=== PATIENT | male | born 1950 | race Caucasian/White ===

== ENCOUNTER 2017-07-18 06:28 | Emergency (ER) | payer BC ==
--- NOTE | 2017-07-18 07:02 | EDM.PDOC ---
ED HPI GENERAL MEDICAL PROBLEM - General Chief Complaint: Neck Problem Stated Complaint: NECK PAIN Time Seen by Provider: 07/18/17 07:02 Source of Information: Reports: Patient History Limitations: Reports: No Limitations - History of Present Illness INITIAL COMMENTS - FREE TEXT/NARRATIVE: 66-year-old male presents to the ED with 6 acute onset of pain in the left side of his neck particularly at the base of the skull. Patient awoke around 0400 hrs. this morning with this pain. He went to bed feeling fine. 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 He has no definitive headache at this time. Pain however is at the base of the skull and more left-sided than right-sided. It's limited his mobility substantially in terms of flexion and lateral rotation and flexion. He is okay if he doesn't move his neck. There is no nausea or vomiting. No recent falls or near falls or slips or injuries identified. He has no other neurological deficits Onset: Today Onset Date: 07/18/17 Onset Time: 04:00 Duration: Hour(s): Location: Reports: Neck (Left neck at the base of the skull.) Quality: Reports: Ache, Sharp, Stabbing Severity: Moderate Improves with: Reports: Rest Worsens with: Reports: Movement Context: Reports: Other (Awoke from sleep at 0400 hrs. with stiff painful neck.) . Denies: Activity, Exercise, Lifting, Sick Contact, Trauma Associated Symptoms: Reports: No Other Symptoms. 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 Left Neck Pain Score (Numeric/FACES): 5 - Related Data Allergies Allergy/AdvReac Type Severity Reaction Status Date / Time No Known Allergies Allergy Verified 07/18/17 06:34 Home Meds: Home Meds Acetaminophen [Tylenol] 325 mg PO DAILY PRN 07/18/17 [History] Albuterol [IJD: Albuterol HFA] 2 puff INH Q4H PRN 07/18/17 [History] Aspirin [Ecotrin] 81 mg PO DAILY 07/18/17 [History] Hydrocodone/Acetaminophen [[place]ibal 10-325 Tablet] 1 each PO Q4H PRN 07/18/17 [ History] Lisinopril 40 mg PO DAILY 07/18/17 [History] Mirtazapine [Remeron] 30 mg PO BEDTIME 07/18/17 [History] Multivitamin with Minerals [Multiple Vitamin] 1 tab PO DAILY 07/18/17 [History] Tadalafil [Cialis] 5 mg PO DAILY 07/18/17 [History] Ticagrelor [Brilinta] 90 mg PO BID 07/18/17 [History] amLODIPine [Norvasc] 10 mg PO DAILY 07/18/17 [History] atorvaSTATin [Lipitor] 40 mg PO BEDTIME 07/18/17 [History] oxyCODONE HCl/Acetaminophen [Percocet 5-325 mg Tablet] 1 - 2 each PO Q4H PRN # 16 tablet 07/18/17 [Rx] predniSONE [Deltasone] 20 mg PO ASDIRECTED #18 tablet 07/18/17 [Rx] Past Medical History HEENT History: Reports: Other (See Below) Other HEENT History: wears glasses Cardiovascular History: Reports: High Cholesterol, Hypertension Respiratory History: Reports: COPD Neurological History: Reports: Other (See Below) Other Neuro History: anerusym with repair x2 - Past Surgical History GI Surgical History: Reports: Appendectomy, Hernia Repair/Other Social & Family History - Tobacco Use Smoking Status *Q: Current Every Day Smoker Years of Tobacco use: 40 Packs/Tins Daily: 0.5 - Recreational Drug Use Recreational Drug Use: No - Living Situation & Occupation Living situation: Reports: Occupation: Employed ED ROS GENERAL - Review of Systems Review Of Systems: See Below Constitutional: Denies: Fever, Chills, Malaise, Weakness, Fatigue, Weight Loss HEENT: Reports: Glasses Respiratory: Reports: No Symptoms Cardiovascular: Reports: No Symptoms Endocrine: Reports: No Symptoms GI/Abdominal: Reports: No Symptoms : Reports: Other (Nocturia 2.) Musculoskeletal: Reports: Other (Osteoarthritic inflammation of knees hips low back at times.) Skin: Reports: No Symptoms ( No previous problems with his neck.) Neurological: Denies: Confusion, Dizziness, Headache, Numbness, Paresthesia, Pre -Existing Deficit, Seizure, Syncope, Tingling, Tremors, Trouble Speaking, Difficulty Walking, Weakness, Gait Disturbance Psychiatric: Reports: No Symptoms ED EXAM, UPPER BACK/NECK PAIN - Physical Exam Exam: See Below Exam Limited By: No Limitations General Appearance: Alert, WD/WN, No Apparent Distress Eye Exam: Bilateral Eye: Normal Inspection, PERRL Head Exam: Atraumatic, Normocephalic Neck Exam: Normal Alignment, Normal Inspection, Painful Range of Motion, Stiff Neck, Tenderness (Patient is very tender along the facet joints from C1-C4 on the left side.), Tender Lateral ( There is minimal paraspinal muscle spasm in this area.). No: Full Range of Motion, Spinous Processes Tender, Tender Midline Nexus Criteria: No: Posterior, Midline Cervical Tenderness, Evidence of Intoxication, Altered Level of Consciousness, Focal Neurological Deficit, Painful Distraction Injuries Cardiovascular/Respiratory: Regular Rate, Rhythm, No M/R/G, Normal Peripheral Pulses, Normal Breath Sounds Extremities: Normal Inspection, Normal Range of Motion, No Pedal Edema, Normal Capillary Refill Neurologic: clamp forklift operator II-XII nml As Tested, No Motor/Sensory Deficits, Alert, Normal Mood/Affect, Oriented x 3 DTR: 2+: Bicep (R), Bicep (L) Psychiatric: Normal Affect, Normal Mood Skin Exam: Normal Color, Warm/Dry Course - Vital Signs Last Recorded V/S: Last Vital Signs Temp 36.6 C 07/18/17 06:30 Pulse 100 07/18/17 06:30 Resp 16 07/18/17 06:30 BP 157/81 H 07/18/17 06:30 Pulse Ox 100 07/18/17 06:30 - Radiology Interpretation Free Text/Narrative:: 66-year-old male presents the ED for evaluation of acute onset of left cervical neck pain particular the base of the skull radiating down the lateral aspect of his left neck. Patient has concerns because he has had a previous ruptured aneurysm on 2 occasions. At this time he has no headache nausea vomiting or visual changes to suggest an intracranial problem. He certainly has limited range of motion of the cervical spine with pain well localized to the facet joints of C1-C4 on the left side. There is associated minimal paraspinal muscle spasm in this area. He has good range of motion over power and tone in the upper extremities is normal. There is no true radiculopathy into the upper extremities. T neck CT head to be done. - Re-Assessments/Exams Free Text/Narrative Re-Assessment/Exam: 07/18/17 08:27 CT of the brain reveals no acute changes. He has several metallic densities within the brain compatible with coils and stents because of aneurysm development. There is no intracranial bleeding. CT of the cervical spine shows advanced degenerative changes from C3-C7 bilaterally with significant neural foraminal stenosis at C6-C7 and particularly at C5-C6 level on the left side. His pain is therefore coming from degenerative disc and arthritic changes at multiple levels. He is on Brilenta due to having intracranial stents. You therefore cannot use any anti-inflammatories. I will place him on a short course of prednisone 20 mg a.m. and p.m. for 6 days then 1 tablet in the morning only for another 6 days in an effort to relieve arthritic inflammation in his cervical spine. Also provided with 16 tablets of Percocet 5/ 3/25 milligrams strength to be used on a when necessary basis for neck pain relief. No provided to New to keep away from the workplace today and tomorrow. Hopefully the steroid will be working in a couple of days and relieve a good deal of his pain. At some point time this patient may well need cervical neck intervention because of the advanced degenerative changes identified today. At present he has no radiculopathy in his upper extremities and therefore would've management is appropriate. He will follow-up with his personal physician if any further problems occur. Departure - Departure Time of Disposition: 08:20 Disposition: Home, Self-Care 01 Condition: Fair Clinical Impression: Cervical neck pain with evidence of disc disease - Discharge Information Prescriptions: oxyCODONE HCl/Acetaminophen [Percocet 5-325 mg Tablet] 1 - 2 each PO Q4H PRN # 16 tablet PRN Reason: pain relief. predniSONE [Deltasone] 20 mg PO ASDIRECTED #18 tablet Instructions: Cervical Sprain, [id number] Referrals: Carissa Medina MD [Primary Care Provider] - Forms: ED Department Discharge, ED Return to Work/School Form Additional Instructions: Evaluation the emergency room room this morning in regards to development of severe left-sided cervical neck pain. CT scan of the brain did not reveal any involvement of cerebral aneurysms and current problem. CT of the cervical spine reveals fairly advanced changes at multiple levels with severe disc space narrowing at C3-C4, C4-C5, C5-C6, and C6-C7 levels. Disc space narrowing is also noted at C7-T1 level and T1-T2 level. There is degenerative spurring noted within the facet joints at C3-C4 through C7-T1. There is mild left-sided neural foraminal narrowing noted at C3-C4 and moderate left-sided neural foraminal stenosis noted at C4-C5 levels. There is severe right-sided neural foraminal stenosis at C5-C6 level and moderate bilateral neural foraminal stenosis noted at C6-C7. Therefore suggest treatment with a short course of prednisone 20 mg twice daily with breakfast and supper for 6 days then 1 tablet in the morning only for another 6 days to relieve inflammation. He can't take any of the normal anti-inflammatories because you are on Brilenta. I've written a prescription for pain medication Percocet tablet which could be taken at bedtime or if the pain is quite severe at any time. But if you take the pain medication you should not be operating a motor vehicle. See how things go hopefully the steroid/to settle things down over the next 24-48 hours. Suggest off work today and a note was provided in this regard. If you develop pain in your extremities particularly her upper arms rating down towards the thumb minutes time to see the doctor again.
--- NOTE | 2017-07-18 08:03 | CT ---
CT cervical spine Technique: Multiple axial sections were obtained from above C1 inferiorly to the bottom of T2. Reconstructed sagittal and coronal images were reviewed. Comparison: No previous cervical spine imaging. Findings: Visualized mastoid sinuses and middle ear cavities are clear. Posterior skull base is intact. Severe disc space narrowing is noted at C3-C4, C4-C5, C5-C6 and C6-C7. Disc space narrowing is also noted at C7-T1 and T1-T2. Posterior osteophytes are seen at C3-C4 through C7-T1. Anterior osteophytes are also seen throughout the cervical spine. Degenerative spurring is noted within the uncovertebral joints at C3-C4 through C7-T1. Mild left-sided neural foraminal stenosis is noted at C3-C4. Mild right-sided neural foraminal stenosis is noted at C4-C5 and moderate left-sided neural foraminal stenosis is noted at C4-C5. Severe right-sided neural foraminal stenosis is noted C5-C6. Moderate bilateral neural foraminal stenosis noted at C6-C7. Very minimal neural foraminal stenosis is noted on the right sided C7-T1. No fracture is seen. No abnormal subluxation is seen. Impression: 1. Diffuse degenerative change as described above. 2. No acute abnormality is identified on CT study of the cervical spine. Diagnostic code #2
--- NOTE | 2017-07-18 08:03 | CT ---
Head CT Technique: Multiple axial sections through the brain were obtained. Intravenous contrast was not utilized. Comparison: No prior intracranial imaging. Findings: Ventricles along with basal cisterns and sulci over the convexities are within normal limits for the patient's age. No abnormal parenchymal densities are seen. No evidence of intracranial hemorrhage. No midline shift or mass effect is seen. Artifact is identified from stent as well as possible aneurysm clips versus embolization coils within the suprasellar cistern and left sylvian fissure. Previous cesar hole is noted within the right frontal region. No acute calvarial abnormality is seen. Impression: 1. Previous intervention with aneurysm clips versus embolization coils as well as stent. This causes some artifact. 3. No acute intracranial abnormality is appreciated. Diagnostic code #2
== END 2017-07-18 08:42 | disposition home or self-care (01) ==
LOC: JD.ED 06:28
DX: M50.90 Cervical disc disorder, unspecified, unspecified cervical region (principal); I10 Essential (primary) hypertension; E78.00 Pure hypercholesterolemia, unspecified; F17.210 Nicotine dependence, cigarettes, uncomplicated; Z79.82 Long term (current) use of aspirin; Z79.899 Other long term (current) drug therapy
CPT/HCPCS: 70450; 70450-26; 72125; 72125-26; 99284; 99284-25

== ENCOUNTER 2018-11-07 17:35 | Emergency (ER) | payer BC ==
--- NOTE | 2018-11-07 19:20 | EDM.PDOCBH ---
ED HPI GENERAL MEDICAL PROBLEM - General Chief Complaint: Behavioral/Psych Stated Complaint: ALCOHOL DETOX Time Seen by Provider: 11/07/18 18:15 Source of Information: Reports: Patient, Family History Limitations: Reports: Intoxication - History of Present Illness INITIAL COMMENTS - FREE TEXT/NARRATIVE: Pt is 68 yo M who was brought in by brother today after asking him to "get him help" for his drinking. He has been a daily drinker x 50 years and drinks hard liquor, wine, and beer. He denies any past or present illicit drug use. He smokes 1.5ppd x 50 years. Today he had 1L Vodka and 4 glasses of wine. He has been to "rehab retreat" before, was never inpt (no known h/o DT), back in [place] per pt and brother, and went 4 times in 2003. Longest he has been sober has been 1 year, but he can't remember what year that was. He states he drinks because "he likes it" and denies any suicidal or homicidal ideation. He wants help today because "I'm sick of people thinking I'm drunk all the time". He currently works at [employer] and per his brother, he drinks daily to the point that he has not been going to work consistently. He states "it's been months since he's been to work, especially 2 days in a row". He has no other family support near him. Daughter is in [place] and son is in [place]. Other brother and sister are "not in the picture" per brother. He does have a h/ o depression and is taking Prosac and Mirtazapine. 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 He denies any F/C, N/V, abdominal pain or GI/ complaints. He does complain of diarrhea x 6 days. No other concerns at this time. EtOH is 0.38 at this time. Brother is [employer] and would like to be contacted with updates regarding his brother's progress. He can be reached at . - Related Data Allergies Allergy/AdvReac Type Severity Reaction Status Date / Time No Known Allergies Allergy Verified 11/07/18 17:54 Home Meds: Home Meds Acetaminophen [Tylenol] 325 mg PO DAILY PRN 07/18/17 [History] Aspirin [Ecotrin] 81 mg PO DAILY 07/18/17 [History] Lisinopril 40 mg PO DAILY 07/18/17 [History] Mirtazapine [Remeron] 30 mg PO BEDTIME 07/18/17 [History] Multivitamin with Minerals [Multiple Vitamin] 1 tab PO DAILY 07/18/17 [History] Tadalafil [Cialis] 5 mg PO DAILY 07/18/17 [History] amLODIPine [Norvasc] 10 mg PO BEDTIME 07/18/17 [History] atorvaSTATin [Lipitor] 40 mg PO DAILY 07/18/17 [History] FLUoxetine [PROzac] 20 mg PO BEDTIME 11/07/18 [History] Past Medical History HEENT History: Reports: Other (See Below) Other HEENT History: wears glasses Cardiovascular History: Reports: Aneurysm, High Cholesterol, Hypertension Respiratory History: Reports: COPD Neurological History: Reports: Other (See Below) Other Neuro History: anerusym with repair x2 - Past Surgical History GI Surgical History: Reports: Appendectomy, Hernia Repair/Other Social & Family History - Tobacco Use Smoking Status *Q: Unknown Ever Smoked - Alcohol Use Days Per Week of Alcohol Use: 7 Number of Drinks Per Day: 10 Total Drinks Per Week: 70 - Recreational Drug Use Recreational Drug Use: No - Living Situation & Occupation Living situation: Reports: Occupation: Employed ED ROS GENERAL - Review of Systems Review Of Systems: ROS reveals no pertinent complaints other than HPI. ED EXAM, BEHAVIORAL HEALTH - Physical Exam Exam: See Below Exam Limited By: Intoxication General Appearance: Alert Eye Exam: Bilateral Eye: EOMI, Normal Inspection, PERRL Ears: Normal External Exam, Hearing Grossly Normal Nose: Normal Inspection, Normal Mucosa, No Blood Throat/Mouth: Normal Inspection, Normal Lips, Normal Teeth, Normal Gums, Normal Oropharynx, Normal Voice, No Airway Compromise Head: Atraumatic, Normocephalic Neck: Normal Inspection, Supple, Non-Tender, Full Range of Motion Respiratory/Chest: No Respiratory Distress, Lungs Clear, Normal Breath Sounds, No Accessory Muscle Use, Chest Non-Tender Cardiovascular: Normal Peripheral Pulses, No Edema, No Gallop, No JVD, No Murmur , No Rub, Tachycardia GI/Abdominal: Soft, Non-Tender, No Organomegaly, No Abnormal Bruit, No Mass, Distended, Abnormal Bowel Sounds (hyperactive) Back Exam: Normal Inspection Extremities: Normal Inspection, Normal Range of Motion, Non-Tender, Normal Capillary Refill, No Pedal Edema Psychiatric: Alert, Oriented. No: Homicidal Thoughts, Suicidal Thoughts Skin Exam: Warm, Dry, Intact, Normal color, No rash COURSE, BEHAVIORAL HEALTH COMP - Course Vital Signs: Last Vital Signs Temp 97.5 F 11/07/18 17:59 Pulse 130 H 11/07/18 17:59 Resp 16 11/07/18 17:59 BP 122/99 H 11/07/18 17:59 Pulse Ox 95 11/07/18 17:59 Orders, Labs, Meds: Active Orders 24 hr Category Date Time Status Lactated Ringers @ 150 MLS/HR(1000ml Bag) Med 11/07/18 21:00 Ordered Lactated Ringers [Ringers, Lactated] 1,000 ml IV ASDIRECTED Medication Orders Lactated Ringer's (Ringers, Lactated) 1,000 mls @ 150 mls/hr IV ASDIRECTED DENY Laboratory Tests 11/07/18 11/07/18 11/07/18 Range/Units 19:15 19:15 20:01 WBC 8.42 (4.23-9.07) K/mm3 RBC 3.83 L (4.63-6.08) M/mm3 Hgb 12.7 L (13.7-17.5) gm/L Hct 37.3 L (40.1-51.0) % MCV 97.4 H (79.0-92.2) fl MCH 33.2 H (25.7-32.2) pg MCHC 34.0 (32.2-35.5) g/dl RDW Std Deviation 48.0 H (35.1-43.9) fL Plt Count 184 (163-337) K/mm3 MPV 10.5 (9.4-12.3) fl Neut % (Auto) 69.5 H (34.0-67.9) % Lymph % (Auto) 23.9 (21.8-53.1) % [place] % (Auto) 5.5 (5.3-12.2) % Eos % (Auto) 0.6 L (0.8-7.0) Baso % (Auto) 0.4 (0.1-1.2) % Neut # (Auto) 5.86 H (1.78-5.38) K/mm3 Lymph # (Auto) 2.01 (1.32-3.57) K/mm3 [place] # (Auto) 0.46 (0.30-0.82) K/mm3 Eos # (Auto) 0.05 (0.04-0.54) K/mm3 Baso # (Auto) 0.03 (0.01-0.08) K/mm3 Sodium 146 H (136-145) mEq/L Potassium 3.6 (3.5-5.1) mEq/L Chloride 111 H (98-107) mEq/L Carbon Dioxide 23 (21-32) mEq/L Anion Gap 15.6 H (5-15) BUN 18 (7-18) mg/dL Creatinine 0.7 (0.7-1.3) mg/dL Est Cr Clr Drug Dosing 103.81 mL/min Estimated GFR (MDRD) > 60 (>60) mL/min BUN/Creatinine Ratio 25.7 H (14-18) Glucose 84 (80-115) mg/dL Calcium 8.3 L (8.5-10.1) mg/dL Total Bilirubin 0.4 (0.2-1.0) mg/dL AST 63 H (15-37) U/L ALT 81 H (16-63) U/L Alkaline Phosphatase 91 (46-116) U/L Total Protein 6.2 L (6.4-8.2) g/dl Albumin 3.1 L (3.4-5.0) g/dl Globulin 3.1 gm/dL Albumin/Globulin Ratio 1.0 (1-2) TSH 3rd Generation 1.561 (0.358-3.74) uIU/mL Urine Opiates Screen Negative (AFHBNG=624) Ur Buprenorphine Scrn Negative (CUTOFF=10) Ur Oxycodone Screen Negative (ACI2DZ=982) Urine Methadone Screen Negative (RBH2VA=173) Ur Propoxyphene Screen Negative (NWRPWL=172) Ur Barbiturates Screen Negative (ZWXHME=732) Ur Tricyclics Screen Negative (LELUBJ=612) Ur Phencyclidine Scrn Negative (CUTOFF=25) Ur Amphetamine Screen Negative (BUBDMY=908) U Methamphetamines Scrn Negative (KCTAZT=381) U Benzodiazepines Scrn Negative (FRQSDH=670) U Cocaine Metab Screen Negative (XPFTJP=630) U Marijuana (THC) Screen Negative (CUTOFF=50) Ethyl Alcohol 0.38 (0.00) gm% Medications Generic Name Dose Route Start Last Admin Trade Name Freq PRN Reason Stop Dose Admin Lactated Ringer's 1,000 mls @ 150 mls/hr 11/07/18 21:00 Ringers, Lactated IV ASDIRECTED DENY Discontinued Medications Generic Name Dose Route Start Last Admin Trade Name Freq PRN Reason Stop Dose Admin Sodium Chloride 1,000 mls @ 999 mls/hr 11/07/18 19:37 11/07/18 20:12 Normal Saline IV 11/07/18 20:37 999 mls/hr ONETIME ONE Administration Thiamine HCl 100 mg/ Sodium 101 mls @ 202 mls/hr 11/07/18 19:37 11/07/18 20: 12 Chloride IV 11/07/18 19:38 202 mls/hr ONETIME ONE Administration Dextrose/Sodium Chloride 1,000 mls @ 150 mls/hr 11/07/18 20:45 Dextrose 5%-1/2 Ns IV ASDIRECTED DENY Nicotine 21 mg 11/07/18 19:40 11/07/18 20:13 Habitrol TRDERM 11/07/18 19:41 21 mg ONETIME ONE Administration Thiamine HCl Confirm 11/07/18 19:52 11/07/18 20:13 Vitamin B-1 Administered 11/07/18 19:53 Not Given Dose 200 mg .ROUTE .STK-MED ONE Re-Assessment/Re-Exam: 11/07/18 19:15 I have ordered CBC, CMP, EtOH, Urine Drug screen, TSH 1L bolus IV NS, 100mg Thiamine, and 21mg Nicotine patch 11/07/18 19:40 EtOH 0.38 CBC Hgb 12.7 CMP Na 146, Cl 111, AGap 15.6, Ca 8.3, AST 63, ALT 81 Drug screen pending 11/07/18 19:45 Discussed case with Hospitalist Dr. Allen who has accepted the patient for admission. Departure - Departure Time of Disposition: 20:31 Disposition: DC/Tfer to Acute Hospital 02 Condition: Undetermined Clinical Impression: Alcohol abuse, Alcohol withdrawal - Discharge Information *PRESCRIPTION DRUG MONITORING PROGRAM REVIEWED*: Not Applicable *COPY OF PRESCRIPTION DRUG MONITORING REPORT IN PATIENT MEREDITH: Not Applicable Referrals: Carissa Medina MD [Primary Care Provider] - Forms: ED Department Discharge - My Orders Last 24 Hours: My Active Orders 11/07/18 21:00 Lactated Ringers @ 150 MLS/HR(1000ml Bag) Lactated Ringers [Ringers, Lactated] 1 ,000 ml IV ASDIRECTED - Assessment/Plan Last 24 Hours: My Active Orders 11/07/18 21:00 Lactated Ringers @ 150 MLS/HR(1000ml Bag) Lactated Ringers [Ringers, Lactated] 1 ,000 ml IV ASDIRECTED
[2018-11-07] MEDS ORDERED: Sodium Chloride 0.9% 1,000 ML IV ONE (19:37)
[2018-11-07] MEDS ORDERED: Thiamine 100 MG in Sodium Chloride 0.9% 100 ML IV ONE (19:37)
[2018-11-07] MEDS ORDERED: Nicotine 21 MG/24 Hr Patch TRDERM ONE (19:40)
[2018-11-07] MEDS ORDERED: Thiamine 200 MG/2 ML MDV ONE (19:52)
[2018-11-07] MEDS ORDERED: Dextrose 5%-0.45% NaCl 1,000 ML IV SCH (20:45)
[2018-11-07] MEDS ORDERED: Lactated Ringers 1,000 ML IV SCH (21:00)
== END 2018-11-07 22:00 ==
LOC: JD.ED 17:35
DX: F10.239 Alcohol dependence with withdrawal, unspecified (principal); E78.00 Pure hypercholesterolemia, unspecified; I10 Essential (primary) hypertension; J44.9 Chronic obstructive pulmonary disease, unspecified; Z79.82 Long term (current) use of aspirin; Z79.899 Other long term (current) drug therapy
CPT/HCPCS: 36415; 80053; 80306; 84443; 85025; 96365; 96366; 99284; A9270; G0480; J3411; J7030; J7040; J7120

== ENCOUNTER 2018-12-14 14:09 | Emergency (ER) | payer BC ==
--- NOTE | 2018-12-14 15:07 | EDM.PDOC ---
ED HPI GENERAL MEDICAL PROBLEM - General Chief Complaint: Cardiovascular Problem Stated Complaint: HAD AP AND NOW HAVING TROUBLE BREATHING. Time Seen by Provider: 12/14/18 14:24 Source of Information: Reports: Patient, RN Notes Reviewed History Limitations: Reports: No Limitations - History of Present Illness INITIAL COMMENTS - FREE TEXT/NARRATIVE: Patient is a 68-year-old male who presents to the ED for the evaluation of increased shortness of breath with activities. The patient states that he has a history of A. fib, and he had a cardioversion done on Monday. This was performed by Dr. Palmer in [place], he states he also had a MEKHI done and this was within normal limits at this time. The patient notes his primary care provider to be Dr. Euceda. He states since the procedure on Monday, he has had increasing shortness of breath with activities. He also states that he just feels generally achy all over, however he states he normally shivers and attributes his achiness to the shivering. The patient states last night that he tried vacuuming his house, and got around 20% of it done when he just became too short of breath and stopped vacuuming. The patient also states he has some decreased energy at this time. The patient states that he has not felt sick otherwise. He also thinks that he might be a little bit bloated at this time. He has never had any issues with fluid on his heart and lungs that he has been told, and he's never had any shortness of breath like this in the past. He states he is on Lasix 80 mg in a.m. and 40 mg at night however. The patient states that he is still working, and works in [employer] so he gets quite a bit of exercise throughout the day. The patient also notes history of COPD for which he takes albuterol, although he has not had an take his albuterol inhaler in quite some time. The patient also notes he is a current smoker, however he is using a patch and only smoking around 4 cigarettes per day. He is trying to quit smoking at this time. The patient further denies any chest pain. But he states that he feels some chest heaviness within the upper chest. The patient does not state that his shortness of breath is worse in any certain position. Chest Pain Score (Numeric/FACES): 5 - Related Data Allergies Allergy/AdvReac Type Severity Reaction Status Date / Time No Known Allergies Allergy Verified 12/14/18 14:16 Home Meds: Home Meds Acetaminophen [Tylenol] 325 mg PO DAILY PRN 07/18/17 [History] Aspirin [Ecotrin] 81 mg PO DAILY 07/18/17 [History] Lisinopril 40 mg PO DAILY 07/18/17 [History] Mirtazapine [Remeron] 30 mg PO BEDTIME 07/18/17 [History] Multivitamin with Minerals [Multiple Vitamin] 1 tab PO DAILY 07/18/17 [History] Tadalafil [Cialis] 5 mg PO DAILY 07/18/17 [History] amLODIPine [Norvasc] 10 mg PO BEDTIME 07/18/17 [History] atorvaSTATin [Lipitor] 40 mg PO DAILY 07/18/17 [History] FLUoxetine [PROzac] 20 mg PO BEDTIME 11/07/18 [History] Magnesium Chloride [Slow-Mag] 71.5 mg PO DAILY #30 tablet. 12/14/18 [Rx] Spironolactone [Aldactone] 25 mg PO BID #60 tablet 12/14/18 [Rx] Past Medical History HEENT History: Reports: Other (See Below) Other HEENT History: wears glasses Cardiovascular History: Reports: Afib, Aneurysm, High Cholesterol, Hypertension Respiratory History: Reports: COPD Neurological History: Reports: Other (See Below) Other Neuro History: anerusym with repair x2 - Past Surgical History GI Surgical History: Reports: Appendectomy, Hernia Repair/Other Social & Family History - Tobacco Use Smoking Status *Q: Current Every Day Smoker Years of Tobacco use: 50 Packs/Tins Daily: 1.5 - Recreational Drug Use Recreational Drug Use: No - Living Situation & Occupation Living situation: Reports: Occupation: Employed ED ROS GENERAL - Review of Systems Review Of Systems: See Below Constitutional: Reports: Chills, Fatigue. Denies: Fever, Weakness HEENT: Reports: No Symptoms Respiratory: Reports: Shortness of Breath. Denies: Wheezing, Cough, Sputum Cardiovascular: Reports: Chest Pain (upper chest pressure), Dyspnea on Exertion. Denies: Lightheadedness, Orthopnea Endocrine: Reports: No Symptoms GI/Abdominal: Reports: Distension (feels bloated, belly is bigger than normal) : Reports: No Symptoms Musculoskeletal: Reports: No Symptoms Skin: Reports: No Symptoms Neurological: Reports: No Symptoms Psychiatric: Reports: No Symptoms Hematologic/Lymphatic: Reports: No Symptoms Immunologic: Reports: No Symptoms ED EXAM, GENERAL - Physical Exam Exam: See Below Exam Limited By: No Limitations General Appearance: Alert, WD/WN, No Apparent Distress Eye Exam: Bilateral Eye: Normal Inspection Ears: Normal External Exam Nose: Normal Inspection Throat/Mouth: Normal Inspection, Normal Lips, Normal Teeth, Normal Oropharynx, Normal Voice, No Airway Compromise Head: Atraumatic, Normocephalic Neck: Normal Inspection Respiratory/Chest: No Respiratory Distress, Lungs Clear, Normal Breath Sounds, No Accessory Muscle Use, Chest Non-Tender Cardiovascular: Normal Peripheral Pulses, Regular Rate, Rhythm, No Murmur GI/Abdominal: Normal Bowel Sounds, Soft, Non-Tender, Distended (Patient's abdomen is visibly distended, he states that he feels bloated and that his belly is bigger than it normally is.) Extremities: Normal Inspection, No Pedal Edema, Normal Capillary Refill Neurological: Alert, Oriented, Normal Cognition, No Motor/Sensory Deficits Psychiatric: Normal Affect, Normal Mood Skin Exam: Warm, Dry, Intact, Normal Color, No Rash EKG INTERPRETATION EKG Date: 12/14/18 Time: 14:19 Rhythm: NSR Rate (Beats/Min): 60 [place]: Normal P-Wave: Present QRS: Normal ST-T: Normal QT: Normal EKG Interpretation Comments: Reviewed with Dr. Rodriguez, Left atrial hypertrophy, T-wave flattening in III, AvL, V4-6 which are nonspecific. Course - Vital Signs Last Recorded V/S: Last Vital Signs Temp Pulse 61 12/14/18 14:16 Resp BP Pulse Ox - Orders/Labs/Meds Orders: Active Orders 24 hr Category Date Time Status EKG Documentation Completion [RC] STAT Care 12/14/18 14:26 Active Peripheral IV Care [RC] . DIRECTED Care 12/14/18 15:59 Inactive Chest 2V [CR] Stat Exams 12/14/18 14:26 Taken Labs: Laboratory Tests 12/14/18 12/14/18 12/14/18 Range/Units 15:04 15:04 15:04 WBC 9.39 H (4.23-9.07) K/mm3 RBC 3.09 L (4.63-6.08) M/mm3 Hgb 10.2 L D (13.7-17.5) gm/L Hct 31.2 L (40.1-51.0) % MCV 101.0 H (79.0-92.2) fl MCH 33.0 H (25.7-32.2) pg MCHC 32.7 (32.2-35.5) g/dl RDW Std Deviation 50.1 H (35.1-43.9) fL Plt Count 160 L (163-337) K/mm3 MPV 11.4 (9.4-12.3) fl Neutrophils % (Manual) 73 H (40-60) % Band Neutrophils % 1 (0-10) % Lymphocytes % (Manual) 13 L (20-40) % Atypical Lymphs % 0 % Monocytes % (Manual) 7 (2-10) % Eosinophils % (Manual) 5 (0.8-7.0) % Basophils % (Manual) 1 (0.2-1.2) Platelet Estimate Adequate Poikilocytosis 1+ slight Anisocytosis 2+ moderate PT 11.4 (9.5-12.1) SECONDS INR 1.05 APTT 27 (24-31) SECONDS D-Dimer, Quantitative 0.47 (0.19-0.50) mg/L Sodium 137 (136-145) mEq/L Potassium 4.0 (3.5-5.1) mEq/L Chloride 101 (98-107) mEq/L Carbon Dioxide 24 (21-32) mEq/L Anion Gap 16.0 H (5-15) BUN 22 H (7-18) mg/dL Creatinine 0.9 (0.7-1.3) mg/dL Est Cr Clr Drug Dosing 80.74 mL/min Estimated GFR (MDRD) > 60 (>60) mL/min BUN/Creatinine Ratio 24.4 H (14-18) Glucose 112 (80-115) mg/dL Calcium 9.7 (8.5-10.1) mg/dL Magnesium (1.8-2.4) mg/dl Total Bilirubin 1.1 H (0.2-1.0) mg/dL AST 121 H (15-37) U/L ALT 159 H (16-63) U/L Alkaline Phosphatase 747 H (46-116) U/L Troponin I < 0.017 (0.00-0.056) ng/mL NT-Pro-B Natriuret Pep (0-125) pg/mL Total Protein 7.1 (6.4-8.2) g/dl Albumin 3.1 L (3.4-5.0) g/dl Globulin 4.0 gm/dL Albumin/Globulin Ratio 0.8 L (1-2) 12/14/18 12/14/18 Range/Units 15:04 15:04 WBC (4.23-9.07) K/mm3 RBC (4.63-6.08) M/mm3 Hgb (13.7-17.5) gm/L Hct (40.1-51.0) % MCV (79.0-92.2) fl MCH (25.7-32.2) pg MCHC (32.2-35.5) g/dl RDW Std Deviation (35.1-43.9) fL Plt Count (163-337) K/mm3 MPV (9.4-12.3) fl Neutrophils % (Manual) (40-60) % Band Neutrophils % (0-10) % Lymphocytes % (Manual) (20-40) % Atypical Lymphs % % Monocytes % (Manual) (2-10) % Eosinophils % (Manual) (0.8-7.0) % Basophils % (Manual) (0.2-1.2) Platelet Estimate Poikilocytosis Anisocytosis PT (9.5-12.1) SECONDS INR APTT (24-31) SECONDS D-Dimer, Quantitative (0.19-0.50) mg/L Sodium (136-145) mEq/L Potassium (3.5-5.1) mEq/L Chloride (98-107) mEq/L Carbon Dioxide (21-32) mEq/L Anion Gap (5-15) BUN (7-18) mg/dL Creatinine (0.7-1.3) mg/dL Est Cr Clr Drug Dosing mL/min Estimated GFR (MDRD) (>60) mL/min BUN/Creatinine Ratio (14-18) Glucose (80-115) mg/dL Calcium (8.5-10.1) mg/dL Magnesium 1.7 L (1.8-2.4) mg/dl Total Bilirubin (0.2-1.0) mg/dL AST (15-37) U/L ALT (16-63) U/L Alkaline Phosphatase (46-116) U/L Troponin I (0.00-0.056) ng/mL NT-Pro-B Natriuret Pep 1504 H (0-125) pg/mL Total Protein (6.4-8.2) g/dl Albumin (3.4-5.0) g/dl Globulin gm/dL Albumin/Globulin Ratio (1-2) Meds: Medications Discontinued Medications Generic Name Dose Route Start Last Admin Trade Name Freq PRN Reason Stop Dose Admin Furosemide 40 mg 12/14/18 15:59 12/14/18 16:16 Lasix IVPUSH 12/14/18 16:00 Not Given NOW ONE Furosemide 60 mg 12/14/18 16:10 12/14/18 16:15 Lasix IM 12/14/18 16:11 60 mg NOW ONE Administration Sodium Chloride 10 ml 12/14/18 15:59 Saline Flush FLUSH ASDIRECTED PRN Keep Vein Open - Re-Assessments/Exams Free Text/Narrative Re-Assessment/Exam: 12/14/18 15:10 Patient presents to the ED for the evaluation of increasing shortness of breath with activities. I have ordered a cardiac workup to include EKG, 2 view chest x -ray, CBC, CMP, troponin, d-dimer, BNP, magnesium, PTT and PT/INR for further evaluation of his symptoms. 12/14/18 16:29 Patient's labs have returned and his troponin, d-dimer, PT/PTT and PT/INR were within normal limits. His EKG did not show any ST acute ischemic changes. Chest x-ray was suggestive of a small amount of fluid on his lungs into the right base, this was also reviewed with Dr. Rodriguez. The patient's BNP is over 1500 which is suggestive of a small amount of heart failure at this time. The patient's liver enzymes are quite elevated however upon reading his last ED visit he was a fairly heavy drinker up until October of this year. I did order 60 mg IM Lasix to be given at the ED today, and have ordered Aldactone 25 mg twice a day, and Slow-Mag 71.5 mg every day for further management of his symptoms. I will suggest that he follow up with his primary care provider sometime next week for reevaluation of his labs. Departure - Departure Time of Disposition: 16:54 Disposition: Home, Self-Care 01 Condition: Fair Clinical Impression: Dyspnea on exertion Prescriptions: Magnesium Chloride [Slow-Mag] 71.5 mg PO DAILY #30 tablet. Spironolactone [Aldactone] 25 mg PO BID #60 tablet Instructions: Heart Failure, [id number] Referrals: Carissa Medina MD [Primary Care Provider] - Forms: ED Department Discharge Additional Instructions: You have been evaluated in the ED today for your increased shortness of breath with activities. Your lab work demonstrates that you are in slight heart failure. You have been given an additional dose of Lasix in the ED today, and have been prescribed 2 other medications that should help with getting the end of the fluid. This medicine called Aldactone please take 25 mg 2 times daily, please take a magnesium 1 time daily. Please take your Lasix at home as prescribed. Please try to follow up with your primary care provider within the next week for further management. These return to the ED if your symptoms should change or worsen. - My Orders Last 24 Hours: My Active Orders 12/14/18 14:26 EKG Documentation Completion [RC] STAT Chest 2V [CR] Stat 12/14/18 15:59 Peripheral IV Care [RC] . DIRECTED - Assessment/Plan Last 24 Hours: My Active Orders 12/14/18 14:26 EKG Documentation Completion [RC] STAT Chest 2V [CR] Stat 12/14/18 15:59 Peripheral IV Care [RC] . DIRECTED
[2018-12-14] MEDS ORDERED: Sodium Chloride 0.9% 10 ML Syringe FLUSH PRN (15:59)
[2018-12-14] MEDS: Furosemide 40 MG/4 ML VIAL IVPUSH ONE ×2 (16:08→16:16)
[2018-12-14] MEDS ORDERED: Furosemide 40 MG/4 ML VIAL IM ONE (16:10)
--- NOTE | 2018-12-15 08:07 | CR ---
Chest: Two views of the chest were obtained. Comparison: No prior chest x-ray. Heart size is slightly enlarged. Upper mediastinum is normal. Minimal atelectasis is seen within the left base. Lungs otherwise are clear with no acute parenchymal change. Bony structures show minimal degenerative change within the spine. Impression: 1. Slightly enlarged heart. 2. Other incidental findings. Nothing acute is appreciated. Diagnostic code #2
== END 2018-12-14 17:07 | disposition home or self-care (01) ==
LOC: JD.ED 14:09
DX: R06.00 Dyspnea, unspecified (principal); I48.91 Unspecified atrial fibrillation; E78.00 Pure hypercholesterolemia, unspecified; I10 Essential (primary) hypertension; J44.9 Chronic obstructive pulmonary disease, unspecified; F17.210 Nicotine dependence, cigarettes, uncomplicated; Z79.82 Long term (current) use of aspirin; Z79.899 Other long term (current) drug therapy
CPT/HCPCS: 36415; 71046; 80053; 83735; 83880; 84484; 85007; 85027; 85379; 85610; 85730; 93005; 96372; 99285; J1940

== ENCOUNTER 2019-05-14 13:49 | Inpatient (IN) | payer MEDICARE, OTHER ==
[2019-05-14] MEDS ORDERED: Sodium Chloride 0.9% 10 ML Syringe FLUSH PRN (14:31)
--- NOTE | 2019-05-14 14:40 | EDM.PDOC ---
ED HPI GENERAL MEDICAL PROBLEM - General Chief Complaint: Gastrointestinal Problem Stated Complaint: SOB Time Seen by Provider: 05/14/19 13:55 Source of Information: Reports: Patient, RN Notes Reviewed - History of Present Illness INITIAL COMMENTS - FREE TEXT/NARRATIVE: 68 year old male comes in with dark tarry stools that started yesterday afternoon. He has been having them about 1 to 2 times per hour today and also frequent dark tarry stools last evening and during the night. No abd pain, nausea or vomiting yesterday or today. He does take daily 81 mg aspirin and also does take eliquis with hx of a fib last winter, spring. He states he was cardioverted late December or early January and to his knowledge has not been in a fib since that time. He does have hx of smoking, probable mild COPD. States he is more short of breath than usual. Denies feeling lightheaded or dizzy. No hx of prior GI bleeding. States he just had a colonoscopy about 3 months ago, had multiple polyps that were removed but no other abnormality at that time. Bilateral Knee Pain Score (Numeric/FACES): 4 - Related Data Allergies Allergy/AdvReac Type Severity Reaction Status Date / Time No Known Allergies Allergy Verified 05/14/19 14:07 Home Meds: Home Meds Aspirin [Ecotrin] 81 mg PO DAILY 07/18/17 [History] Mirtazapine [Remeron] 30 mg PO BEDTIME 07/18/17 [History] Multivitamin with Minerals [Multiple Vitamin] 1 tab PO DAILY 07/18/17 [History] Tadalafil [Cialis] 5 mg PO DAILY 07/18/17 [History] amLODIPine [Norvasc] 10 mg PO BEDTIME 07/18/17 [History] FLUoxetine [PROzac] 40 mg PO BEDTIME 11/07/18 [History] Apixaban [Eliquis] 5 mg PO BID 12/14/18 [History] Folic Acid 1 mg PO DAILY 12/14/18 [History] Metoprolol Succinate [Toprol XL 100mg] 100 mg PO DAILY 12/14/18 [History] Potassium Chloride [Klor-Con M20] 20 meq PO DAILY 12/14/18 [History] hydrALAZINE [Apresoline] 25 mg PO Q8H 12/14/18 [History] Acetaminophen 325 mg PO DAILY 05/14/19 [History] Albuterol [Ventolin HFA] 90 mcg IH Q4HR PRN 05/14/19 [History] Bisac/NaCl/NaHCo3/KCl/PEG 3350 [Peg-Prep Kit] 1 each PO ASDIRECTED 05/14/19 [ History] Furosemide 40 mg PO ASDIRECTED 05/14/19 [History] Latanoprost/Pf [Latanoprost 0.005% Eye Drop] 1 drop OP DAILY 05/14/19 [History] Magnesium Chloride [Slow-Mag] 70 mg PO DAILY 05/14/19 [History] Nicotine [Nicoderm CQ] 21 mg TD DAILY 05/14/19 [History] Past Medical History HEENT History: Reports: Glaucoma, Impaired Vision Other HEENT History: wears glasses Cardiovascular History: Reports: Afib, Blood Clots/VTE/DVT, High Cholesterol, Hypertension Respiratory History: Reports: COPD Genitourinary History: Reports: None Musculoskeletal History: Reports: Arthritis Neurological History: Reports: Cerebral Aneurysms Other Neuro History: anerusym with repair x2. Pt has stents and coils in the brain. Psychiatric History: Reports: Depression Endocrine/Metabolic History: Reports: None Hematologic History: Reports: Anticoagulation Therapy Immunologic History: Reports: None Oncologic (Cancer) History: Reports: None Dermatologic History: Reports: None - Infectious Disease History Infectious Disease History: Reports: None - Past Surgical History GI Surgical History: Reports: Appendectomy, Hernia Repair/Other Social & Family History - Tobacco Use Smoking Status *Q: Current Every Day Smoker Years of Tobacco use: 50 Packs/Tins Daily: 0.7 - Caffeine Use Caffeine Use: Reports: None - Recreational Drug Use Recreational Drug Use: No - Living Situation & Occupation Living situation: Reports: Occupation: Employed ED ROS GENERAL - Review of Systems Review Of Systems: See Below Constitutional: Denies: Fever, Chills, Diaphoresis HEENT: Denies: Nosebleed, Throat Pain Respiratory: Denies: Shortness of Breath Cardiovascular: Denies: Chest Pain GI/Abdominal: Reports: Melena. Denies: Abdominal Pain, Nausea, Vomiting Musculoskeletal: Reports: No Symptoms Skin: Reports: No Symptoms Neurological: Denies: Dizziness, Numbness, Tingling, Trouble Speaking, Difficulty Walking, Weakness ED EXAM, GI/ABD - Physical Exam Exam: See Below General Appearance: Alert Eyes: Bilateral: Normal Appearance Throat/Mouth: Normal Inspection, Normal Oropharynx Head: Atraumatic. No: Facial Swelling Neck: Supple, Full Range of Motion Respiratory/Chest: No Respiratory Distress, Lungs Clear, Normal Breath Sounds Cardiovascular: Regular Rate, Rhythm GI/Abdominal Exam: Soft, Non-Tender. No: Guarding Rectal (Males) Exam: Heme + Stool (very small amt black diarrhea type stool on glove very strongly heme pos, no bright blood present) Extremities: Normal Inspection, Normal Range of Motion Neurological: Alert, Oriented, No Motor/Sensory Deficits Skin Exam: Warm, Dry, Normal Color EKG INTERPRETATION Rhythm: NSR [place]: Normal P-Wave: Present QRS: Normal ST-T: Other (mild nonspecific t wave changes) Course - Vital Signs Last Recorded V/S: Last Vital Signs Temp 97.4 F 05/14/19 14:02 Pulse 90 05/14/19 14:02 Resp 16 05/14/19 14:02 BP 135/86 05/14/19 14:02 Pulse Ox 97 05/14/19 14:02 Orthostatic Blood Pressure [ 137/94 Standing] Orthostatic Blood Pressure [ 136/90 Sitting] Orthostatic Blood Pressure [ 137/83 Supine] - Orders/Labs/Meds Orders: Active Orders 24 hr Category Date Time Status EKG 12 Lead [EKG Documentation Completion] [RC] STAT Care 05/14/19 14:32 Active Influenza Vaccine Charge [RC] .DISCHARGE Care 05/14/19 14:12 Active Peripheral IV Care [RC] . DIRECTED Care 05/14/19 14:31 Active PATIENT RETYPE [BBK] Routine Lab 05/14/19 15:38 Ordered Sodium Chloride 0.9% [Saline Flush] Med 05/14/19 14:31 Active 10 ml FLUSH ASDIRECTED PRN Peripheral IV Insertion Adult [OM.PC] Stat Oth 05/14/19 14:31 Ordered Medication Orders Sodium Chloride (Saline Flush) 10 ml FLUSH ASDIRECTED PRN PRN Reason: Keep Vein Open Labs: Laboratory Tests 05/14/19 05/14/19 05/14/19 Range/Units 14:45 14:45 14:45 WBC 5.13 (4.23-9.07) K/mm3 RBC 3.50 L (4.63-6.08) M/mm3 Hgb 11.6 L (13.7-17.5) gm/dl Hct 33.6 L (40.1-51.0) % MCV 96.0 H D (79.0-92.2) fl MCH 33.1 H (25.7-32.2) pg MCHC 34.5 (32.2-35.5) g/dl RDW Std Deviation 54.9 H (35.1-43.9) fL Plt Count 164 (163-337) K/mm3 MPV 10.4 (9.4-12.3) fl Neut % (Auto) 75.4 H (34.0-67.9) % Lymph % (Auto) 15.8 L (21.8-53.1) % [place] % (Auto) 8.0 (5.3-12.2) % Eos % (Auto) 0.4 L (0.8-7.0) Baso % (Auto) 0.4 (0.1-1.2) % Neut # (Auto) 3.87 (1.78-5.38) K/mm3 Lymph # (Auto) 0.81 L (1.32-3.57) K/mm3 [place] # (Auto) 0.41 (0.30-0.82) K/mm3 Eos # (Auto) 0.02 L (0.04-0.54) K/mm3 Baso # (Auto) 0.02 (0.01-0.08) K/mm3 PT 9.8 (9.7-12.0) SECONDS INR < 0.93 APTT 25 (22-31) SECONDS Sodium 140 (136-145) mEq/L Potassium 3.5 (3.5-5.1) mEq/L Chloride 106 (98-107) mEq/L Carbon Dioxide 22 (21-32) mEq/L Anion Gap 15.5 H (5-15) BUN 8 (7-18) mg/dL Creatinine 0.7 (0.7-1.3) mg/dL Est Cr Clr Drug Dosing 103.81 mL/min Estimated GFR (MDRD) > 60 (>60) mL/min BUN/Creatinine Ratio 11.4 L (14-18) Glucose 105 (80-115) mg/dL Calcium 8.6 (8.5-10.1) mg/dL Total Bilirubin 0.3 (0.2-1.0) mg/dL AST 190 H (15-37) U/L ALT 153 H (16-63) U/L Alkaline Phosphatase 128 H (46-116) U/L Total Protein 6.1 L (6.4-8.2) g/dl Albumin 2.3 L (3.4-5.0) g/dl Globulin 3.8 gm/dL Albumin/Globulin Ratio 0.6 L (1-2) Ethyl Alcohol (0.00) gm% Blood Type Gel Antibody Screen 05/14/19 05/14/19 Range/Units 14:45 14:45 WBC (4.23-9.07) K/mm3 RBC (4.63-6.08) M/mm3 Hgb (13.7-17.5) gm/dl Hct (40.1-51.0) % MCV (79.0-92.2) fl MCH (25.7-32.2) pg MCHC (32.2-35.5) g/dl RDW Std Deviation (35.1-43.9) fL Plt Count (163-337) K/mm3 MPV (9.4-12.3) fl Neut % (Auto) (34.0-67.9) % Lymph % (Auto) (21.8-53.1) % [place] % (Auto) (5.3-12.2) % Eos % (Auto) (0.8-7.0) Baso % (Auto) (0.1-1.2) % Neut # (Auto) (1.78-5.38) K/mm3 Lymph # (Auto) (1.32-3.57) K/mm3 [place] # (Auto) (0.30-0.82) K/mm3 Eos # (Auto) (0.04-0.54) K/mm3 Baso # (Auto) (0.01-0.08) K/mm3 PT (9.7-12.0) SECONDS INR APTT (22-31) SECONDS Sodium (136-145) mEq/L Potassium (3.5-5.1) mEq/L Chloride (98-107) mEq/L Carbon Dioxide (21-32) mEq/L Anion Gap (5-15) BUN (7-18) mg/dL Creatinine (0.7-1.3) mg/dL Est Cr Clr Drug Dosing mL/min Estimated GFR (MDRD) (>60) mL/min BUN/Creatinine Ratio (14-18) Glucose (80-115) mg/dL Calcium (8.5-10.1) mg/dL Total Bilirubin (0.2-1.0) mg/dL AST (15-37) U/L ALT (16-63) U/L Alkaline Phosphatase (46-116) U/L Total Protein (6.4-8.2) g/dl Albumin (3.4-5.0) g/dl Globulin gm/dL Albumin/Globulin Ratio (1-2) Ethyl Alcohol 0.26 (0.00) gm% Blood Type AB POSITIVE Gel Antibody Screen Negative Meds: Medications Generic Name Dose Route Start Last Admin Trade Name Freq PRN Reason Stop Dose Admin Sodium Chloride 10 ml 05/14/19 14:31 Saline Flush FLUSH ASDIRECTED PRN Keep Vein Open Discontinued Medications Generic Name Dose Route Start Last Admin Trade Name Freq PRN Reason Stop Dose Admin Influenza Virus Vaccine 1 each 05/14/19 14:12 Pharmacy To Dose - Influenza Vaccine IM 05/14/19 14:13 ONETIME ONE Influenza Virus Vaccine 180 mcg 05/14/19 14:15 05/14/19 14:28 Fluzone High-Dose 2019-20 Syringe IM 05/14/19 14:16 180 mcg .ONCE ONE Administration - Re-Assessments/Exams Free Text/Narrative Re-Assessment/Exam: 05/14/19 15:34 Hgb has come back at 11.6. He did well with ortho's lying to standing, no change with BP and no significant change heart rate lying to standing. 05/14/19 16:04. remainder of labs are back, AST, ALT, alk phos all mildly elevated, INR 0.93. His blood alcohol did come back quite elevated at 0.26. Have discussed with Dr Ward, Hospitalist high school physical education teacher and also Dr Croft, General Surgeon high school physical education teacher, will admit to ICU for further eval and treatment. Departure - Departure Time of Disposition: 16:05 Disposition: Admitted As Inpatient 68 Condition: Serious Clinical Impression: Upper gastrointestinal hemorrhage Alcohol intoxication Qualifiers: Complication of substance-induced condition: uncomplicated Qualified Code(s): F10.920 - Alcohol use, unspecified with intoxication, uncomplicated - Discharge Information ED Communication - Discussed Case With (1) Discussed Case With (1): Admitting Provider (Dr Ward, decision to admit at about 16:00) - Discussed Case With (2) Discussed Case With (2): Admitting Provider - My Orders Last 24 Hours: My Active Orders 05/14/19 14:12 Influenza Vaccine Charge [RC] .DISCHARGE 05/14/19 14:31 Peripheral IV Care [RC] . DIRECTED Sodium Chloride 0.9% [Saline Flush] 10 ml FLUSH ASDIRECTED PRN Peripheral IV Insertion Adult [OM.PC] Stat 05/14/19 14:32 EKG 12 Lead [EKG Documentation Completion] [RC] STAT 05/14/19 15:38 PATIENT RETYPE [BBK] Routine - Assessment/Plan Last 24 Hours: My Active Orders 05/14/19 14:12 Influenza Vaccine Charge [RC] .DISCHARGE 05/14/19 14:31 Peripheral IV Care [RC] . DIRECTED Sodium Chloride 0.9% [Saline Flush] 10 ml FLUSH ASDIRECTED PRN Peripheral IV Insertion Adult [OM.PC] Stat 05/14/19 14:32 EKG 12 Lead [EKG Documentation Completion] [RC] STAT 05/14/19 15:38 PATIENT RETYPE [BBK] Routine
[2019-05-14] MEDS ORDERED: Famotidine 20 MG/2 ML SDV IVPUSH ONE (16:15)
[2019-05-14] MEDS ORDERED: Pantoprazole 40 MG Vial IVPUSH ONE (16:15)
[2019-05-14] MEDS: Lactated Ringers 1,000 ML IV SCH (16:30)
[2019-05-14] MEDS ORDERED: LORazepam 2 MG/ML SDV IVPUSH ONE (20:19)
[2019-05-14] MEDS ORDERED: chlordiazePOXIDE 25 MG Cap PO ONE (20:33)
[2019-05-14] MEDS ORDERED: LORazepam 1 MG Tab PO PRN (21:15)
[2019-05-14] MEDS ORDERED: LORazepam 2 MG/ML SDV IVPUSH PRN (21:16)
[2019-05-14] MEDS: hydrALAZINE 25 MG Tab PO SCH (21:22)
[2019-05-14] MEDS: Mirtazapine 30 MG Tab PO SCH (21:22)
--- NOTE | 2019-05-14 21:57 | PCM.HP.2 ---
H&P History of Present Illness - General Date of Service: 05/14/19 Admit Problem/Dx: Admission Diagnosis/Problem Admission Diagnosis/Problem GI bleed not requiring more than 4 units of blood in 24 hours, ICU, or surgery - History of Present Illness Initial Comments - Free Text/Narative: 68-year-old male heavy alcohol user presented to the emergency room with shortness of breath, black stools 12 this morning, and abdominal pain. Patient is on Eliquis and aspirin. He had atrial fibrillation and was set up to have a cardioversion 3 months ago, but when they found a thrombus on echocardiogram he was placed on Eliquis. Patient subsequently did have a successful cardioversion and is currently in sinus rhythm. Patient has continued on Eliquis and aspirin. He has no history of coronary artery disease or stroke. Patient states that he has COPD and has an appointment with pulmonology on May 27, 2019 for follow-up. He did have an overnight oximetry done. He has approximately [id number] history. Patient states that he was seen by a cream dumper for colonoscopy who heard something unusual in his right lung. This is when he was referred to the compensation consulting manager. Patient also has a strong history of alcohol abuse. He states he started drinking at 18 years of age and currently drinks between a pint and 750 mL of vodka with 4 glasses of wine each day. If he slows down or stops drinking he does go through withdrawal but has never had a seizure. In the emergency room patient was found to have grossly positive Hemoccult stools on rectal exam. Hemoglobin was 11.6. He had normal vital signs and did not have orthostasis. Laboratory studies in the emergency room: New EC 5.1, hemoglobin 11.6, platelet count 164, INR less than 0.93, sodium 140, potassium 3.5, chloride 106 , anion gap 15.5, BUN 8, creatinine 0.7, glucose 105, bilirubin 0.3, AST 190, ALT 133, alkaline phosphatase 128, total protein 6.1, albumin 2.3. UA positive for 3+ proteins, trace ketones, 1+ occult blood, 1+ bilirubin. EtOH 0.26 g percent Bilateral Knee Pain Score (Numeric/FACES): 4 - Related Data Allergies/Adverse Reactions: Allergies Allergy/AdvReac Type Severity Reaction Status Date / Time No Known Allergies Allergy Verified 05/14/19 14:07 Home Medications: Home Meds Aspirin [Ecotrin] 81 mg PO DAILY 07/18/17 [History] Mirtazapine [Remeron] 30 mg PO BEDTIME 07/18/17 [History] Multivitamin with Minerals [Multiple Vitamin] 1 tab PO DAILY 07/18/17 [History] Tadalafil [Cialis] 5 mg PO DAILY 07/18/17 [History] amLODIPine [Norvasc] 10 mg PO BEDTIME 07/18/17 [History] FLUoxetine [PROzac] 40 mg PO BEDTIME 11/07/18 [History] Apixaban [Eliquis] 5 mg PO BID 12/14/18 [History] Folic Acid 1 mg PO DAILY 12/14/18 [History] Metoprolol Succinate [Toprol XL 100mg] 100 mg PO DAILY 12/14/18 [History] Potassium Chloride [Klor-Con M20] 20 meq PO DAILY 12/14/18 [History] hydrALAZINE [Apresoline] 25 mg PO Q8H 12/14/18 [History] Acetaminophen 325 mg PO DAILY 05/14/19 [History] Albuterol [Ventolin HFA] 90 mcg IH Q4HR PRN 05/14/19 [History] Bisac/NaCl/NaHCo3/KCl/PEG 3350 [Peg-Prep Kit] 1 each PO ASDIRECTED 05/14/19 [ History] Furosemide 40 mg PO ASDIRECTED 05/14/19 [History] Latanoprost/Pf [Latanoprost 0.005% Eye Drop] 1 drop OP DAILY 05/14/19 [History] Magnesium Chloride [Slow-Mag] 70 mg PO DAILY 05/14/19 [History] Nicotine [Nicoderm CQ] 21 mg TD DAILY 05/14/19 [History] Past Medical History HEENT History: Reports: Glaucoma, Impaired Vision Other HEENT History: wears glasses Cardiovascular History: Reports: Afib, Blood Clots/VTE/DVT, High Cholesterol, Hypertension Respiratory History: Reports: COPD Genitourinary History: Reports: None Musculoskeletal History: Reports: Arthritis Neurological History: Reports: Cerebral Aneurysms Other Neuro History: anerusym with repair x2. Pt has stents and coils in the brain. Psychiatric History: Reports: Depression Endocrine/Metabolic History: Reports: None Hematologic History: Reports: Anticoagulation Therapy Immunologic History: Reports: None Oncologic (Cancer) History: Reports: None Dermatologic History: Reports: None - Infectious Disease History Infectious Disease History: Reports: None - Past Surgical History GI Surgical History: Reports: Appendectomy, Hernia Repair/Other Social & Family History - Tobacco Use Smoking Status *Q: Current Every Day Smoker Years of Tobacco use: 50 Packs/Tins Daily: 0.7 - Caffeine Use Caffeine Use: Reports: None - Alcohol Use Date of Last Drink: 05/14/19 - Recreational Drug Use Recreational Drug Use: No - Living Situation & Occupation Living situation: Reports: Occupation: Employed H&P Review of Systems - Review of Systems: Review Of Systems: ROS reveals no pertinent complaints other than HPI. Exam - Exam Exam: See Below - Vital Signs Vital Signs: Last Vital Signs Temp 98 F 05/14/19 19:53 Pulse 92 05/14/19 20:00 Resp 20 05/14/19 20:00 BP 165/101 H 05/14/19 21:22 Pulse Ox 96 05/14/19 20:00 Orthostatic Blood Pressure [ 137/94 Standing] Orthostatic Blood Pressure [ 136/90 Sitting] Orthostatic Blood Pressure [ 137/83 Supine] Weight: 183 lb 9.6 oz - Exam Quality Assessment: No: Supplemental Oxygen General: Alert, Oriented, 4 HEENT: Conjunctiva Clear, EOMI, Hearing Intact, Mucosa Moist & [place], Normal Nasal Septum Neck: Supple, Trachea Midline, 2 Lungs: Clear to Auscultation, Normal Respiratory Effort Cardiovascular: Regular Rate, Regular Rhythm GI/Abdominal Exam: Normal Bowel Sounds, Soft, Non-Tender, No Organomegaly, No Distention, No Abnormal Bruit, No Mass Rectal (Males) Exam: Deferred (Done by the emergency room physician) Extremities: Normal Inspection, Normal Range of Motion, Non-Tender, No Pedal Edema, Normal Capillary Refill Skin: Warm, Dry, Intact Neurological: Cranial Nerves Intact, Other ( hand tremor) Neuro Extensive - Mental Status: Alert, Oriented x3, Normal Mood/Affect, Normal Cognition, Memory Intact Psychiatric: Withdrawal Symptoms - Patient Data Lab Results Last 24 hrs: Laboratory Results - last 24 hr 05/14/19 05/14/19 05/14/19 Range/Units 14:45 14:45 14:45 WBC 5.13 (4.23-9.07) K/mm3 RBC 3.50 L (4.63-6.08) M/mm3 Hgb 11.6 L (13.7-17.5) gm/dl Hct 33.6 L (40.1-51.0) % MCV 96.0 H D (79.0-92.2) fl MCH 33.1 H (25.7-32.2) pg MCHC 34.5 (32.2-35.5) g/dl RDW Std Deviation 54.9 H (35.1-43.9) fL Plt Count 164 (163-337) K/mm3 MPV 10.4 (9.4-12.3) fl Neut % (Auto) 75.4 H (34.0-67.9) % Lymph % (Auto) 15.8 L (21.8-53.1) % [place] % (Auto) 8.0 (5.3-12.2) % Eos % (Auto) 0.4 L (0.8-7.0) Baso % (Auto) 0.4 (0.1-1.2) % Neut # (Auto) 3.87 (1.78-5.38) K/mm3 Lymph # (Auto) 0.81 L (1.32-3.57) K/mm3 [place] # (Auto) 0.41 (0.30-0.82) K/mm3 Eos # (Auto) 0.02 L (0.04-0.54) K/mm3 Baso # (Auto) 0.02 (0.01-0.08) K/mm3 PT 9.8 (9.7-12.0) SECONDS INR < 0.93 APTT 25 (22-31) SECONDS Sodium 140 (136-145) mEq/L Potassium 3.5 (3.5-5.1) mEq/L Chloride 106 (98-107) mEq/L Carbon Dioxide 22 (21-32) mEq/L Anion Gap 15.5 H (5-15) BUN 8 (7-18) mg/dL Creatinine 0.7 (0.7-1.3) mg/dL Est Cr Clr Drug Dosing 103.81 mL/min Estimated GFR (MDRD) > 60 (>60) mL/min BUN/Creatinine Ratio 11.4 L (14-18) Glucose 105 (80-115) mg/dL Calcium 8.6 (8.5-10.1) mg/dL Total Bilirubin 0.3 (0.2-1.0) mg/dL AST 190 H (15-37) U/L ALT 153 H (16-63) U/L Alkaline Phosphatase 128 H (46-116) U/L Total Protein 6.1 L (6.4-8.2) g/dl Albumin 2.3 L (3.4-5.0) g/dl Globulin 3.8 gm/dL Albumin/Globulin Ratio 0.6 L (1-2) Urine Color (Yellow) Urine Appearance (Clear) Urine pH (5.0-8.0) Ur Specific [place] (1.005-1.030) Urine Protein (Negative) Urine Glucose (UA) (Negative) Urine Ketones (Negative) Urine Occult Blood (Negative) Urine Nitrite (Negative) Urine Bilirubin (Negative) Urine Urobilinogen (0.2-1.0) Ur Leukocyte Esterase (Negative) Urine RBC (0-5) /hpf Urine WBC (0-5) /hpf Ur Epithelial Cells (0-5) /hpf Urine Bacteria (FEW) /hpf Urine Mucus (FEW) /hpf Ethyl Alcohol (0.00) gm% Blood Type Gel Antibody Screen 05/14/19 05/14/19 05/14/19 Range/Units 14:45 14:45 16:35 WBC (4.23-9.07) K/mm3 RBC (4.63-6.08) M/mm3 Hgb (13.7-17.5) gm/dl Hct (40.1-51.0) % MCV (79.0-92.2) fl MCH (25.7-32.2) pg MCHC (32.2-35.5) g/dl RDW Std Deviation (35.1-43.9) fL Plt Count (163-337) K/mm3 MPV (9.4-12.3) fl Neut % (Auto) (34.0-67.9) % Lymph % (Auto) (21.8-53.1) % [place] % (Auto) (5.3-12.2) % Eos % (Auto) (0.8-7.0) Baso % (Auto) (0.1-1.2) % Neut # (Auto) (1.78-5.38) K/mm3 Lymph # (Auto) (1.32-3.57) K/mm3 [place] # (Auto) (0.30-0.82) K/mm3 Eos # (Auto) (0.04-0.54) K/mm3 Baso # (Auto) (0.01-0.08) K/mm3 PT (9.7-12.0) SECONDS INR APTT (22-31) SECONDS Sodium (136-145) mEq/L Potassium (3.5-5.1) mEq/L Chloride (98-107) mEq/L Carbon Dioxide (21-32) mEq/L Anion Gap (5-15) BUN (7-18) mg/dL Creatinine (0.7-1.3) mg/dL Est Cr Clr Drug Dosing mL/min Estimated GFR (MDRD) (>60) mL/min BUN/Creatinine Ratio (14-18) Glucose (80-115) mg/dL Calcium (8.5-10.1) mg/dL Total Bilirubin (0.2-1.0) mg/dL AST (15-37) U/L ALT (16-63) U/L Alkaline Phosphatase (46-116) U/L Total Protein (6.4-8.2) g/dl Albumin (3.4-5.0) g/dl Globulin gm/dL Albumin/Globulin Ratio (1-2) Urine Color Dark yellow (Yellow) Urine Appearance Clear (Clear) Urine pH 5.5 (5.0-8.0) Ur Specific [place] > or = 1.030 (1.005-1.030) Urine Protein 3+ H (Negative) Urine Glucose (UA) Negative (Negative) Urine Ketones Trace H (Negative) Urine Occult Blood 1+ H (Negative) Urine Nitrite Negative (Negative) Urine Bilirubin 1+ H (Negative) Urine Urobilinogen 0.2 (0.2-1.0) Ur Leukocyte Esterase Negative (Negative) Urine RBC 0-5 (0-5) /hpf Urine WBC Not seen (0-5) /hpf Ur Epithelial Cells Not seen (0-5) /hpf Urine Bacteria Few (FEW) /hpf Urine Mucus Few (FEW) /hpf Ethyl Alcohol 0.26 (0.00) gm% Blood Type AB POSITIVE Gel Antibody Screen Negative 05/14/19 Range/Units 18:08 WBC (4.23-9.07) K/mm3 RBC (4.63-6.08) M/mm3 Hgb 10.7 L (13.7-17.5) gm/dl Hct 31.7 L (40.1-51.0) % MCV (79.0-92.2) fl MCH (25.7-32.2) pg MCHC (32.2-35.5) g/dl RDW Std Deviation (35.1-43.9) fL Plt Count (163-337) K/mm3 MPV (9.4-12.3) fl Neut % (Auto) (34.0-67.9) % Lymph % (Auto) (21.8-53.1) % [place] % (Auto) (5.3-12.2) % Eos % (Auto) (0.8-7.0) Baso % (Auto) (0.1-1.2) % Neut # (Auto) (1.78-5.38) K/mm3 Lymph # (Auto) (1.32-3.57) K/mm3 [place] # (Auto) (0.30-0.82) K/mm3 Eos # (Auto) (0.04-0.54) K/mm3 Baso # (Auto) (0.01-0.08) K/mm3 PT (9.7-12.0) SECONDS INR APTT (22-31) SECONDS Sodium (136-145) mEq/L Potassium (3.5-5.1) mEq/L Chloride (98-107) mEq/L Carbon Dioxide (21-32) mEq/L Anion Gap (5-15) BUN (7-18) mg/dL Creatinine (0.7-1.3) mg/dL Est Cr Clr Drug Dosing mL/min Estimated GFR (MDRD) (>60) mL/min BUN/Creatinine Ratio (14-18) Glucose (80-115) mg/dL Calcium (8.5-10.1) mg/dL Total Bilirubin (0.2-1.0) mg/dL AST (15-37) U/L ALT (16-63) U/L Alkaline Phosphatase (46-116) U/L Total Protein (6.4-8.2) g/dl Albumin (3.4-5.0) g/dl Globulin gm/dL Albumin/Globulin Ratio (1-2) Urine Color (Yellow) Urine Appearance (Clear) Urine pH (5.0-8.0) Ur Specific [place] (1.005-1.030) Urine Protein (Negative) Urine Glucose (UA) (Negative) Urine Ketones (Negative) Urine Occult Blood (Negative) Urine Nitrite (Negative) Urine Bilirubin (Negative) Urine Urobilinogen (0.2-1.0) Ur Leukocyte Esterase (Negative) Urine RBC (0-5) /hpf Urine WBC (0-5) /hpf Ur Epithelial Cells (0-5) /hpf Urine Bacteria (FEW) /hpf Urine Mucus (FEW) /hpf Ethyl Alcohol (0.00) gm% Blood Type Gel Antibody Screen Result Diagrams: 05/14/19 21:53 05/14/19 14:45 EKG INTERPRETATION EKG Interpretation Comments: Sinus rhythm with ventricular rate of 89 bpm. T-wave inversion in anteroseptal leads. Possible ischemia. No previous EKGs to compare. Problem List Initiated/Reviewed/Updated: Yes Orders Last 24hrs: Active Orders 24 hr Category Date Time Status Patient Status [ADT] Stat ADT 05/14/19 18:53 Active Antiembolic Devices [RC] PER UNIT ROUTINE Care 05/14/19 21:44 Active CIWAA Assessment [RC] Q1H Care 05/14/19 21:17 Active EKG 12 Lead [EKG Documentation Completion] [RC] STAT Care 05/14/19 14:32 Active Influenza Vaccine Charge [RC] .DISCHARGE Care 05/14/19 14:12 Active Notify Provider Consults [RC] ASDIRECTED Care 05/14/19 21:44 Active Oxygen Therapy [RC] PRN Care 05/14/19 21:17 Active Up ad Tasneem [RC] ASDIRECTED Care 05/14/19 21:17 Active VTE/DVT Education [RC] PER UNIT ROUTINE Care 05/14/19 21:17 Active Vital Signs [RC] Q4H Care 05/14/19 21:17 Active Consult to Physician [CONS] Routine Cons 05/14/19 21:43 Active Nothing per Oral Now Diet [DIET] Diet 05/14/19 Dinner Active CBC WITH AUTO DIFF [HEME] AM Lab 05/15/19 05:11 Ordered CBC WITH AUTO DIFF [HEME] AM Lab 05/16/19 05:11 Ordered CBC WITH AUTO DIFF [HEME] AM Lab 05/17/19 05:11 Ordered COMPREHENSIVE METABOLIC PN,CMP [CHEM] AM Lab 05/15/19 05:11 Ordered COMPREHENSIVE METABOLIC PN,CMP [CHEM] AM Lab 05/16/19 05:11 Ordered COMPREHENSIVE METABOLIC PN,CMP [CHEM] AM Lab 05/17/19 05:11 Ordered HEMOGLOBIN/HEMATOCRIT,HH [HEME] Stat Lab 05/14/19 21:45 Ordered MAGNESIUM [CHEM] AM Lab 05/15/19 05:11 Ordered MAGNESIUM [CHEM] AM Lab 05/16/19 05:11 Ordered MAGNESIUM [CHEM] AM Lab 05/17/19 05:11 Ordered PATIENT RETYPE [BBK] Routine Lab 05/14/19 15:38 Ordered FLUoxetine [PROzac] Med 05/15/19 09:00 Active 20 mg PO DAILY Folic Acid Med 05/15/19 09:00 Active 1 mg PO DAILY Furosemide [Lasix] Med 05/15/19 15:00 Active 20 mg IVPUSH Q24H Furosemide [Lasix] Med 05/15/19 09:00 Active 40 mg IVPUSH DAILY LORazepam [Ativan] Med 05/14/19 21:16 Active See Protocol IVPUSH Q1H PRN LORazepam [Ativan] Med 05/14/19 21:15 Active See Protocol PO Q1H PRN Lactated Ringers [Ringers, Lactated] 1,000 ml Med 05/14/19 16:15 Active IV ASDIRECTED Metoprolol Succinate [Toprol XL] Med 05/15/19 09:00 Active 100 mg PO DAILY Mirtazapine [Remeron] Med 05/14/19 21:00 Active 30 mg PO BEDTIME Nicotine [Habitrol] Med 05/15/19 09:00 Active 21 mg TRDERM DAILY Sodium Chloride 0.9% [Saline Flush] Med 05/14/19 14:31 Active 10 ml FLUSH ASDIRECTED PRN chlordiazePOXIDE [Librium] Med 05/15/19 03:30 Once 50 mg PO ONETIME ONE hydrALAZINE [Apresoline] Med 05/14/19 21:00 Active 25 mg PO Q8H Peripheral IV Insertion Adult [OM.PC] Stat Oth 05/14/19 14:31 Ordered Sequential Compression Device [OM.PC] Per Unit Routine Oth 05/14/19 21:18 Ordered Resuscitation Status Routine Resus Stat 05/14/19 21:17 Ordered Medication Orders Chlordiazepoxide HCl (Librium) 50 mg PO ONETIME ONE Stop: 05/15/19 03:31 Fluoxetine HCl (Prozac) 20 mg PO DAILY [facility] Folic Acid (Folic Acid) 1 mg PO DAILY [facility] Furosemide (Lasix) 40 mg IVPUSH DAILY [facility] Furosemide (Lasix) 20 mg IVPUSH Q24H [facility] Hydralazine HCl (Apresoline) 25 mg PO Q8H [facility] Last Admin: 05/14/19 21:22 Dose: 25 mg Lactated Ringer's (Ringers, Lactated) 1,000 mls @ 150 mls/hr IV ASDIRECTED [facility] Last Admin: 05/14/19 16:30 Dose: 150 mls/hr Lorazepam (Ativan) 0 mg PO Q1H PRN; Protocol PRN Reason: Withdrawal Symptoms Lorazepam (Ativan) 0 mg IVPUSH Q1H PRN; Protocol PRN Reason: Withdrawal Symptoms Metoprolol Succinate (Toprol Xl) 100 mg PO DAILY [facility] Mirtazapine (Remeron) 30 mg PO BEDTIME [facility] Last Admin: 05/14/19 21:22 Dose: 30 mg Nicotine (Habitrol) 21 mg TRDERM DAILY [facility] Sodium Chloride (Saline Flush) 10 ml FLUSH ASDIRECTED PRN PRN Reason: Keep Vein Open Last Admin: 05/14/19 16:30 Dose: 10 ml Assessment/Plan Comment:: Assessment * 68-year-old male with history of alcohol abuse presents with shortness of breath and black stools. * GI bleed * Initial hemoglobin 11.6, repeat 4 hours apart: 10.7 and 10.6 * On Eliquis and aspirin for history of atrial fibrillation cardioverted to sinus rhythm 3-4 months ago * Hemodynamically stable * Alcohol withdrawal * Up to 750 mL of vodka and 4 glasses of wine daily * No history of alcohol withdrawal seizurE * COPD * Patient complaints of shortness of breath without wheeze, rales or rhonchi * Chronic medical history of hypertension, lower extremity edema without mention of congestive heart failure, depression, tobaccoism Plan * Admit to ICU * Consult surgery-done in the emergency room * Monitor H&H * CIWA protocol with Ativan * Librium 50 mg now and in 6 hours. May need to hold after that for upper endoscopy * CBC, CMP, mag in the morning * Restart appropriate home meds * Nicotine replacement - spent 4 minutes counseling on smoking cessation. * CODE STATUS full code * VTE prophylaxis with SCDs. Chemotherapy prophylaxis contraindicated. * Type and screen done in the emergency room. - Mortality Measure Prognosis:: Poor
[2019-05-14] MEDS: Potassium Chloride 10 MEQ in Premix Bag 1 BAG IV SCH (23:39)
[2019-05-15] MEDS ORDERED: Nicotine 21 MG/24 Hr Patch TRDERM ONE (00:19)
[2019-05-15] MEDS: Potassium Chloride 10 MEQ in Premix Bag 1 BAG IV SCH (01:23)
[2019-05-15] MEDS: Lactated Ringers 1,000 ML IV SCH (01:59)
[2019-05-15] MEDS ORDERED: chlordiazePOXIDE 25 MG Cap PO ONE (03:30)
[2019-05-15] MEDS: Albuterol/Ipratropium 3.0-0.5 MG/3 ML Neb Soln NEB PRN (04:13)
[2019-05-15] MEDS: hydrALAZINE 25 MG Tab PO SCH ×3 (04:20→20:20)
--- NOTE | 2019-05-15 06:53 | CR ---
Chest: Portable view of the chest was obtained. Comparison: Prior chest x-ray of 12/14/18. Heart is mildly enlarged. Tortuous thoracic aorta is seen. Lungs are clear with no acute parenchymal change. Bony structures are grossly intact. Impression: 1. Heart size is felt to be slightly enlarged. Nothing acute is appreciated on portable chest x-ray. Diagnostic code #2 I agree with preliminary report from [facility], finalized on 05/15/19, 12:10 AM Central Time
[2019-05-15] MEDS ORDERED: Thiamine 200 MG/2 ML MDV IVPUSH SCH (07:00)
[2019-05-15] MEDS: Pantoprazole 40 MG Vial IVPUSH SCH ×2 (07:25→18:42)
[2019-05-15] MEDS ORDERED: Folic Acid 1 MG Tab PO SCH (09:00)
[2019-05-15] MEDS ORDERED: Furosemide 40 MG/4 ML VIAL IVPUSH SCH (09:00)
[2019-05-15] MEDS: Nicotine 21 MG/24 Hr Patch TRDERM SCH (09:33)
[2019-05-15] MEDS: FLUoxetine 20 MG Cap PO SCH (09:35)
[2019-05-15] MEDS: Metoprolol Succinate 50 MG Tab.ER PO SCH (09:53)
[2019-05-15] MEDS: [UNRECOGNIZED DRUG - OTHER] IV SCH (10:20)
[2019-05-15] MEDS: THIAMINE IV SCH (10:20)
[2019-05-15] MEDS: FOLIC ACID IV SCH (10:20)
[2019-05-15] MEDS: MAGNESIUM SULFATE IV SCH (10:20)
--- NOTE | 2019-05-15 11:35 | PCM.PREANE ---
Preanesthetic Assessment - Anesthesia/Transfusion/Family Hx Anesthesia History: Prior Anesthesia Without Reaction Family History of Anesthesia Reaction: No Transfusion History: No Prior Transfusion(s) - Review of Systems General: Other (heavy alcohol abuse, 750ml of vodka plus 4 glasses of wine per day. 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 , on elaquis) Cardiovascular: Other (HTN, history of afib, cardioverted 3 months ago, SR currently) Neurological: Other (had aneurysm with stent and coil placement in 2011-) Other: Reports: Easy Bleeding, Depression - Physical Assessment NPO Status Date: 05/15/19 NPO Status Time: 23:55 Vital Signs: Last Vital Signs Temp 36.7 C 05/15/19 07:47 Pulse 97 05/15/19 09:53 Resp 18 05/15/19 07:47 BP 144/92 H 05/15/19 09:53 Pulse Ox 96 05/15/19 07:47 Orthostatic Blood Pressure [ 137/94 Standing] Orthostatic Blood Pressure [ 136/90 Sitting] Orthostatic Blood Pressure [ 137/83 Supine] Height: 1.75 m Weight: 86.636 kg ASA Class: 3 Mental Status: Alert & Oriented x3 Airway Class: Mallampati = 2 Dentition: Reports: Normal Dentition Thyro-Mental Finger Breadths: 3 Mouth Opening Finger Breadths: 3 ROM/Head Extension: Full Lungs: Clear to Auscultation, Normal Respiratory Effort - Lab Values: Laboratory Last Values WBC 4.95 K/mm3 (4.23-9.07) 05/15/19 03:57 RBC 3.18 M/mm3 (4.63-6.08) L 05/15/19 03:57 Hgb 10.4 gm/dl (13.7-17.5) L 05/15/19 03:57 Hct 30.5 % (40.1-51.0) L 05/15/19 03:57 MCV 95.9 fl (79.0-92.2) H 05/15/19 03:57 MCH 32.7 pg (25.7-32.2) H 05/15/19 03:57 MCHC 34.1 g/dl (32.2-35.5) 05/15/19 03:57 RDW Std Deviation 54.7 fL (35.1-43.9) H 05/15/19 03:57 Plt Count 120 K/mm3 (163-337) L 05/15/19 03:57 MPV 10.4 fl (9.4-12.3) 05/15/19 03:57 Neut % (Auto) 75.4 % (34.0-67.9) H 05/14/19 14:45 Lymph % (Auto) 15.8 % (21.8-53.1) L 05/14/19 14:45 Merrick % (Auto) 8.0 % (5.3-12.2) 05/14/19 14:45 Eos % (Auto) 0.4 (0.8-7.0) L 05/14/19 14:45 Baso % (Auto) 0.4 % (0.1-1.2) 05/14/19 14:45 Neut # (Auto) 3.87 K/mm3 (1.78-5.38) 05/14/19 14:45 Lymph # (Auto) 0.81 K/mm3 (1.32-3.57) L 05/14/19 14:45 Merrick # (Auto) 0.41 K/mm3 (0.30-0.82) 05/14/19 14:45 Eos # (Auto) 0.02 K/mm3 (0.04-0.54) L 05/14/19 14:45 Baso # (Auto) 0.02 K/mm3 (0.01-0.08) 05/14/19 14:45 Neutrophils % (Manual) 66 % (40-60) H 05/15/19 03:57 Band Neutrophils % 4 % (0-10) 05/15/19 03:57 Lymphocytes % (Manual) 27 % (20-40) 05/15/19 03:57 Atypical Lymphs % 0 % 05/15/19 03:57 Monocytes % (Manual) 3 % (2-10) 05/15/19 03:57 Eosinophils % (Manual) 0 % (0.8-7.0) L 05/15/19 03:57 Basophils % (Manual) 0 (0.2-1.2) L 05/15/19 03:57 Manual Slide Review Cancelled 05/15/19 03:57 Platelet Estimate Decreased 05/15/19 03:57 Macrocytosis 2+ moderate 05/15/19 03:57 RBC Morph Comment Not Reportable 05/15/19 03:57 Percent Retic 2.54 % (0.51-1.81) H 05/15/19 03:57 PT 9.8 SECONDS (9.7-12.0) 05/14/19 14:45 INR < 0.93 05/14/19 14:45 APTT 25 SECONDS (22-31) 05/14/19 14:45 Sodium 141 mEq/L (136-145) 05/15/19 03:57 Potassium 3.7 mEq/L (3.5-5.1) 05/15/19 03:57 Chloride 109 mEq/L (98-107) H 05/15/19 03:57 Carbon Dioxide 24 mEq/L (21-32) 05/15/19 03:57 Anion Gap 11.7 (5-15) 05/15/19 03:57 BUN 9 mg/dL (7-18) 05/15/19 03:57 Creatinine 0.6 mg/dL (0.7-1.3) L 05/15/19 03:57 Est Cr Clr Drug Dosing 121.11 mL/min 05/15/19 03:57 Estimated GFR (MDRD) > 60 mL/min (>60) 05/15/19 03:57 BUN/Creatinine Ratio 15.0 (14-18) 05/15/19 03:57 Glucose 81 mg/dL (80-115) 05/15/19 03:57 Calcium 8.5 mg/dL (8.5-10.1) 05/15/19 03:57 Magnesium 1.1 mg/dl (1.8-2.4) L 05/15/19 03:57 Total Bilirubin 0.6 mg/dL (0.2-1.0) 05/15/19 03:57 AST 129 U/L (15-37) H 05/15/19 03:57 ALT 126 U/L (16-63) H 05/15/19 03:57 Alkaline Phosphatase 113 U/L (46-116) 05/15/19 03:57 Total Protein 5.4 g/dl (6.4-8.2) L 05/15/19 03:57 Albumin 2.1 g/dl (3.4-5.0) L 05/15/19 03:57 Globulin 3.3 gm/dL 05/15/19 03:57 Albumin/Globulin Ratio 0.6 (1-2) L 05/15/19 03:57 Urine Color Dark yellow (Yellow) 05/14/19 16:35 Urine Appearance Clear (Clear) 05/14/19 16:35 Urine pH 5.5 (5.0-8.0) 05/14/19 16:35 Ur Specific Salome > or = 1.030 (1.005-1.030) 05/14/19 16:35 Urine Protein 3+ (Negative) H 05/14/19 16:35 Urine Glucose (UA) Negative (Negative) 05/14/19 16:35 Urine Ketones Trace (Negative) H 05/14/19 16:35 Urine Occult Blood 1+ (Negative) H 05/14/19 16:35 Urine Nitrite Negative (Negative) 05/14/19 16:35 Urine Bilirubin 1+ (Negative) H 05/14/19 16:35 Urine Urobilinogen 0.2 (0.2-1.0) 05/14/19 16:35 Ur Leukocyte Esterase Negative (Negative) 05/14/19 16:35 Urine RBC 0-5 /hpf (0-5) 05/14/19 16:35 Urine WBC Not seen /hpf (0-5) 05/14/19 16:35 Ur Epithelial Cells Not seen /hpf (0-5) 05/14/19 16:35 Urine Bacteria Few /hpf (FEW) 05/14/19 16:35 Urine Mucus Few /hpf (FEW) 05/14/19 16:35 Ethyl Alcohol 0.26 gm% (0.00) 05/14/19 14:45 Blood Type AB POSITIVE 05/14/19 14:45 Gel Antibody Screen Negative 05/14/19 14:45 - Allergies Allergies/Adverse Reactions: Allergies Allergy/AdvReac Type Severity Reaction Status Date / Time No Known Allergies Allergy Verified 05/14/19 14:07 - Blood Blood Available: No Product(s) Available: None - Anesthesia Plan Pre-Op Medication Ordered: None Beta Jeffrey: Metoprolol Med Last Dose Date: 05/15/19 Med Last Dose Time: 09:00 - Acknowledgements Anesthesia Type Planned: MAC Pt an Appropriate Candidate for the Planned Anesthesia: Yes Alternatives and Risks of Anesthesia Discussed w Pt/Guardian: Yes Pt/Guardian Understands and Agrees with Anesthesia Plan: Yes PreAnesthesia Questionnaire HEENT History: Reports: Glaucoma, Impaired Vision Other HEENT History: wears glasses Cardiovascular History: Reports: Afib, Blood Clots/VTE/DVT, High Cholesterol, Hypertension Respiratory History: Reports: COPD Genitourinary History: Reports: None Musculoskeletal History: Reports: Arthritis Neurological History: Reports: Cerebral Aneurysms Other Neuro History: anerusym with repair x2. Pt has stents and coils in the brain. Psychiatric History: Reports: Depression Endocrine/Metabolic History: Reports: None Hematologic History: Reports: Anticoagulation Therapy Immunologic History: Reports: None Oncologic (Cancer) History: Reports: None Dermatologic History: Reports: None - Infectious Disease History Infectious Disease History: Reports: None - Past Surgical History GI Surgical History: Reports: Appendectomy, Hernia Repair/Other - SUBSTANCE USE Smoking Status *Q: Current Every Day Smoker Tobacco Use Within Last Twelve Months: Cigarettes Date of Last Drink: 05/14/19 Recreational Drug Use History: No - HOME MEDS Home Medications: Home Meds Aspirin [Ecotrin] 81 mg PO DAILY 07/18/17 [History] Mirtazapine [Remeron] 30 mg PO BEDTIME 07/18/17 [History] Multivitamin with Minerals [Multiple Vitamin] 1 tab PO DAILY 07/18/17 [History] Tadalafil [Cialis] 5 mg PO DAILY 07/18/17 [History] amLODIPine [Norvasc] 10 mg PO BEDTIME 07/18/17 [History] FLUoxetine [PROzac] 40 mg PO BEDTIME 11/07/18 [History] Apixaban [Eliquis] 5 mg PO BID 12/14/18 [History] Folic Acid 1 mg PO DAILY 12/14/18 [History] Metoprolol Succinate [Toprol XL 100mg] 100 mg PO DAILY 12/14/18 [History] Potassium Chloride [Klor-Con M20] 20 meq PO DAILY 12/14/18 [History] hydrALAZINE [Apresoline] 25 mg PO Q8H 12/14/18 [History] Acetaminophen 325 mg PO DAILY 05/14/19 [History] Albuterol [Ventolin HFA] 90 mcg IH Q4HR PRN 05/14/19 [History] Bisac/NaCl/NaHCo3/KCl/PEG 3350 [Peg-Prep Kit] 1 each PO ASDIRECTED 05/14/19 [ History] Furosemide 40 mg PO ASDIRECTED 05/14/19 [History] Latanoprost/Pf [Latanoprost 0.005% Eye Drop] 1 drop OP DAILY 05/14/19 [History] Magnesium Chloride [Slow-Mag] 70 mg PO DAILY 05/14/19 [History] Nicotine [Nicoderm CQ] 21 mg TD DAILY 05/14/19 [History] - CURRENT (IN HOUSE) MEDS Current Meds: Current Medications Albuterol/Ipratropium (Duoneb 3.0-0.5 Mg/3 Ml) 3 ml NEB Q4HRRT PRN PRN Reason: Shortness of Breath Last Admin: 05/15/19 04:13 Dose: 3 ml Fluoxetine HCl (Prozac) 20 mg PO DAILY [facility] Last Admin: 05/15/19 09:35 Dose: 20 mg Furosemide (Lasix) 40 mg IVPUSH DAILY [facility] Last Admin: 05/15/19 09:33 Dose: 40 mg Furosemide (Lasix) 20 mg IVPUSH Q24H [facility] Hydralazine HCl (Apresoline) 25 mg PO Q8H [facility] Last Admin: 05/15/19 04:20 Dose: 25 mg Thiamine HCl 1,000 mg/ Folic Acid 1 mg/ Magnesium Sulfate 4 gm/ Dextrose/Sodium Chloride 1,018.2 mls @ 125 mls/hr IV Q24H [facility] Stop: 05/16/19 18:09 Last Admin: 05/15/19 10:20 Dose: 125 mls/hr Metoprolol Succinate (Toprol Xl) 100 mg PO DAILY [facility] Last Admin: 05/15/19 09:53 Dose: 100 mg Mirtazapine (Remeron) 30 mg PO BEDTIME [facility] Last Admin: 05/14/19 21:22 Dose: 30 mg Miscellaneous Information (Remove Patch) 1 ea TRDERM Q24H [facility] Nicotine (Habitrol) 21 mg TRDERM DAILY [facility] Last Admin: 05/15/19 09:33 Dose: 21 mg Pantoprazole Sodium (Protonix Iv) 40 mg IVPUSH Q12H [facility] Last Admin: 05/15/19 07:25 Dose: 40 mg Sodium Chloride (Saline Flush) 10 ml FLUSH ASDIRECTED PRN PRN Reason: Keep Vein Open Last Admin: 05/14/19 16:30 Dose: 10 ml Discontinued Medications Chlordiazepoxide HCl (Librium) 50 mg PO ONETIME ONE Stop: 05/14/19 20:34 Last Admin: 05/14/19 21:22 Dose: 50 mg Chlordiazepoxide HCl (Librium) 50 mg PO ONETIME ONE Stop: 05/15/19 03:31 Last Admin: 05/15/19 03:55 Dose: 50 mg Famotidine (Pepcid) 20 mg IVPUSH ONETIME ONE Stop: 05/14/19 16:16 Last Admin: 05/14/19 16:23 Dose: 20 mg Folic Acid (Folic Acid) 1 mg PO DAILY DENY Last Admin: 05/15/19 09:35 Dose: 1 mg Lactated Ringer's (Ringers, Lactated) 1,000 mls @ 150 mls/hr IV ASDIRECTED DENY Last Infusion: 05/15/19 02:01 Dose: 100 mls/hr Potassium Chloride 10 meq/ (Premix) 100 mls @ 100 mls/hr IV Q1H DENY Stop: 05/15/19 00:59 Last Admin: 05/15/19 01:23 Dose: 100 mls/hr Influenza Virus Vaccine (Pharmacy To Dose - Influenza Vaccine) 1 each IM ONETIME ONE Stop: 05/14/19 14:13 Last Admin: 05/14/19 14:28 Dose: 1 each Influenza Virus Vaccine (Fluzone High-Dose 2019-20 Syringe) 180 mcg IM .ONCE ONE Stop: 05/14/19 14:16 Last Admin: 05/14/19 14:28 Dose: 180 mcg Lorazepam (Ativan) 1 mg IVPUSH ONETIME ONE Stop: 05/14/19 20:20 Last Admin: 05/14/19 20:26 Dose: 1 mg Lorazepam (Ativan) 0 mg PO Q1H PRN; Protocol PRN Reason: Withdrawal Symptoms Lorazepam (Ativan) 0 mg IVPUSH Q1H PRN; Protocol PRN Reason: Withdrawal Symptoms Miscellaneous Information (Remove Patch) 1 ea TRDERM ONETIME ONE Stop: 05/15/19 09:01 Last Admin: 05/15/19 09:35 Dose: 1 ea Nicotine (Habitrol) 21 mg TRDERM ONETIME ONE Stop: 05/15/19 00:20 Last Admin: 05/15/19 00:46 Dose: 21 mg Pantoprazole Sodium (Protonix Iv) 40 mg IVPUSH ONETIME ONE Stop: 05/14/19 16:16 Last Admin: 05/14/19 16:27 Dose: 40 mg Thiamine HCl (Vitamin B-1) 100 mg IVPUSH Q8H DENY Last Admin: 05/15/19 08:42 Dose: Not Given
--- NOTE | 2019-05-15 13:31 | CONS ---
CONSULTING PHYSICIAN: Jacob Croft MD DATE OF CONSULTATION: 05/15/2019 ADMITTING DIAGNOSIS: Upper gastrointestinal bleed. REQUESTING PHYSICIAN: Tr Barcenas MD. HISTORY OF PRESENT ILLNESS: Mr. Gaming is a 68-year-old alcohol abuser, who presented last night to the ED with shortness of breath. He said since Monday, he has had multiple black tarry stools. It started on Monday. He reported about 12 bowel movements on that day alone. This was associated with some mild crampy abdominal pain. The patient is on Eliquis for a recent history of atrial fibrillation, status post ablation. He is also on aspirin. He had a cardioversion 3 months ago and has been in sinus rhythm since then as far as he knows. At the time of his ablation, they also found a thrombus in his echocardiogram and was immediately placed on Eliquis until he could be cardioverted. He has no history of coronary artery disease or stroke. He does have a history of cerebral aneurysms x2. He is stented and coiled and has no neurologic deficit. He has been drinking alcohol for perhaps 30 years. He currently drinks 1 pint of vodka and 4 glasses of wine daily. He was recently seen by marketing services coordinator. His liver function improved when decreased his drinking; however, he says that when he decreases his drinking he undergoes withdrawal. He denies a history of seizure. He has never had an upper endoscopy; however, he did have a colonoscopy just a couple of weeks ago and 7 polyps were removed. This was not done here, and I do not have records or the pathology. PAST MEDICAL HISTORY: Glaucoma; history of atrial fibrillation, status post ablation; hypercholesterolemia; hypertension; COPD; tobacco use disorder; arthritis; cerebral aneurysms; depression. PAST SURGICAL HISTORY: Colonoscopy with 7 polyp ablations. He had 2 coils and stents placed for cerebral aneurysms, appendectomy, and an umbilical hernia repair. ALLERGIES TO MEDICATIONS: None. MEDICATIONS AT HOME: Aspirin; Remeron; multivitamin; Cialis; Norvasc; Prozac; Eliquis, his last dose was 24 hours ago; folic acid; metoprolol; Klor-Con; hydralazine; acetaminophen; albuterol; Lasix; latanoprost; magnesium chloride; Nicoderm. FAMILY HISTORY: Notable for coronary artery disease, Raynaud phenomenon, and other autoimmune diseases. SOCIAL HISTORY: He is a smoker. He has a 33-kywh-tpec history. Alcohol abuse as noted above. He is a retired gentleman. REVIEW OF SYSTEMS: A 10-system review is notable for that listed above, but otherwise unremarkable. PHYSICAL EXAMINATION: GENERAL: He is a tremulous, just mildly pale-looking gentleman, who appears older than his stated age. VITAL SIGNS: Temperature 98.1, pulse 97, respiration 18, blood pressure 144/92. HEAD: Normocephalic and atraumatic. He has mild pallor. NECK: Supple. Full range of motion. LUNGS: Clear to auscultation bilaterally. HEART: Regular rhythm, but he has had some very mild tachycardia. He is in normal sinus rhythm. No clicks, murmurs, or rubs. No carotid bruits. ABDOMEN: Soft. He has a resonant note to percussion. He appears mildly distended. No significant hepatomegaly is appreciated. He has a mildly tender umbilicus without evidence of a hernia. No other hernias appreciated. No palpable masses. EXTREMITIES: No clubbing, cyanosis, or edema. INTEGUMENT: No caput medusae. No jaundice. No skin lesions. No petechiae. NEUROLOGIC: He appears to have asterixis, moving all 4 extremities. Cranial nerves are grossly intact. PSYCHIATRIC: He has insight into his disease. He has linear thinking, appropriate affect and demeanor. LABORATORY DATA: Labs showed a mild anemia at 10.4 hemoglobin. INR is 0.93. His AST and ALT are notably elevated at 129 and 126, however, his bilirubin is only 0.6. He has a low albumin-globulin ratio at 0.6 with an albumin of 2.1, alkaline phosphatase of 113. Ethyl alcohol on admission was 0.26. I looked at his chest x-ray; some mild cardiomegaly, but otherwise unremarkable. The stool guaiac was strongly positive. ASSESSMENT: Alcohol abuse, tobacco abuse, upper gastrointestinal bleed. He likely has some chronic liver disease secondary to alcohol abuse. PLAN: His last dose of Eliquis was a little over a day ago, so we will have to wait to do his EGD tomorrow. I want to find the source of bleeding and rule out malignancy. I doubt esophageal varices in the absence of caput medusae. I have thoroughly discussed with him his risks, benefits, and alternatives. The risks of EGD include, but are not limited to perforation of the GI tract, further surgery, bleeding, aspiration pneumonia, laryngeal spasm, recurrence of the GI bleed, and others. He gave informed consent. MMKOSTA /[id number]
[2019-05-15] MEDS ORDERED: Furosemide 20 MG/2 ML VIAL IVPUSH SCH (15:00)
[2019-05-15] MEDS ORDERED: LORazepam 1 MG Tab PO PRN (15:12)
[2019-05-15] MEDS ORDERED: Furosemide 80 MG Tab PO ONE (16:33)
--- NOTE | 2019-05-15 16:39 | PCM.PN ---
- Patient Data Vitals - Most Recent: Last Vital Signs Temp 36.4 C 05/15/19 16:00 Pulse 80 05/15/19 16:00 Resp 16 05/15/19 16:00 BP 148/85 H 05/15/19 16:00 Pulse Ox 94 L 05/15/19 16:00 Orthostatic Blood Pressure [ 137/94 Standing] Orthostatic Blood Pressure [ 136/90 Sitting] Orthostatic Blood Pressure [ 137/83 Supine] Weight - Most Recent: 86.636 kg I&O - Last 24 Hours: Intake & Output 05/15/19 05/15/19 05/15/19 06:59 14:59 22:59 Intake Total 150 1139 1969 Output Total 525 700 Balance 258 641 1128 Lab Results Last 24 Hours: Laboratory Results - last 24 hr 05/14/19 05/14/19 05/14/19 Range/Units 16:35 18:08 21:53 WBC (4.23-9.07) K/mm3 RBC (4.63-6.08) M/mm3 Hgb 10.7 L 10.6 L (13.7-17.5) gm/dl Hct 31.7 L 31.2 L (40.1-51.0) % MCV (79.0-92.2) fl MCH (25.7-32.2) pg MCHC (32.2-35.5) g/dl RDW Std Deviation (35.1-43.9) fL Plt Count (163-337) K/mm3 MPV (9.4-12.3) fl Neut % (Auto) Lymph % (Auto) [place] % (Auto) Eos % (Auto) Baso % (Auto) Neut # (Auto) Lymph # (Auto) [place] # (Auto) Eos # (Auto) Baso # (Auto) Neutrophils % (Manual) (40-60) % Band Neutrophils % (0-10) % Lymphocytes % (Manual) (20-40) % Atypical Lymphs % % Monocytes % (Manual) (2-10) % Eosinophils % (Manual) (0.8-7.0) % Basophils % (Manual) (0.2-1.2) Manual Slide Review Platelet Estimate Macrocytosis RBC Morph Comment Percent Retic (0.51-1.81) % Sodium (136-145) mEq/L Potassium (3.5-5.1) mEq/L Chloride (98-107) mEq/L Carbon Dioxide (21-32) mEq/L Anion Gap (5-15) BUN (7-18) mg/dL Creatinine (0.7-1.3) mg/dL Est Cr Clr Drug Dosing mL/min Estimated GFR (MDRD) (>60) mL/min BUN/Creatinine Ratio (14-18) Glucose (80-115) mg/dL Calcium (8.5-10.1) mg/dL Magnesium (1.8-2.4) mg/dl Total Bilirubin (0.2-1.0) mg/dL AST (15-37) U/L ALT (16-63) U/L Alkaline Phosphatase (46-116) U/L Total Protein (6.4-8.2) g/dl Albumin (3.4-5.0) g/dl Globulin gm/dL Albumin/Globulin Ratio (1-2) Urine Color Dark yellow (Yellow) Urine Appearance Clear (Clear) Urine pH 5.5 (5.0-8.0) Ur Specific [place] > or = 1.030 (1.005-1.030) Urine Protein 3+ H (Negative) Urine Glucose (UA) Negative (Negative) Urine Ketones Trace H (Negative) Urine Occult Blood 1+ H (Negative) Urine Nitrite Negative (Negative) Urine Bilirubin 1+ H (Negative) Urine Urobilinogen 0.2 (0.2-1.0) Ur Leukocyte Esterase Negative (Negative) Urine RBC 0-5 (0-5) /hpf Urine WBC Not seen (0-5) /hpf Ur Epithelial Cells Not seen (0-5) /hpf Urine Bacteria Few (FEW) /hpf Urine Mucus Few (FEW) /hpf 05/15/19 05/15/19 Range/Units 03:57 03:57 WBC 4.95 (4.23-9.07) K/mm3 RBC 3.18 L (4.63-6.08) M/mm3 Hgb 10.4 L (13.7-17.5) gm/dl Hct 30.5 L (40.1-51.0) % MCV 95.9 H (79.0-92.2) fl MCH 32.7 H (25.7-32.2) pg MCHC 34.1 (32.2-35.5) g/dl RDW Std Deviation 54.7 H (35.1-43.9) fL Plt Count 120 L (163-337) K/mm3 MPV 10.4 (9.4-12.3) fl Neut % (Auto) Cancelled Lymph % (Auto) Cancelled [place] % (Auto) Cancelled Eos % (Auto) Cancelled Baso % (Auto) Cancelled Neut # (Auto) Cancelled Lymph # (Auto) Cancelled [place] # (Auto) Cancelled Eos # (Auto) Cancelled Baso # (Auto) Cancelled Neutrophils % (Manual) 66 H (40-60) % Band Neutrophils % 4 (0-10) % Lymphocytes % (Manual) 27 (20-40) % Atypical Lymphs % 0 % Monocytes % (Manual) 3 (2-10) % Eosinophils % (Manual) 0 L (0.8-7.0) % Basophils % (Manual) 0 L (0.2-1.2) Manual Slide Review Cancelled Platelet Estimate Decreased Macrocytosis 2+ moderate RBC Morph Comment Not Reportable Percent Retic 2.54 H (0.51-1.81) % Sodium 141 (136-145) mEq/L Potassium 3.7 (3.5-5.1) mEq/L Chloride 109 H (98-107) mEq/L Carbon Dioxide 24 (21-32) mEq/L Anion Gap 11.7 (5-15) BUN 9 (7-18) mg/dL Creatinine 0.6 L (0.7-1.3) mg/dL Est Cr Clr Drug Dosing 121.11 mL/min Estimated GFR (MDRD) > 60 (>60) mL/min BUN/Creatinine Ratio 15.0 (14-18) Glucose 81 (80-115) mg/dL Calcium 8.5 (8.5-10.1) mg/dL Magnesium 1.1 L (1.8-2.4) mg/dl Total Bilirubin 0.6 (0.2-1.0) mg/dL AST 129 H (15-37) U/L ALT 126 H (16-63) U/L Alkaline Phosphatase 113 (46-116) U/L Total Protein 5.4 L (6.4-8.2) g/dl Albumin 2.1 L (3.4-5.0) g/dl Globulin 3.3 gm/dL Albumin/Globulin Ratio 0.6 L (1-2) Urine Color (Yellow) Urine Appearance (Clear) Urine pH (5.0-8.0) Ur Specific [place] (1.005-1.030) Urine Protein (Negative) Urine Glucose (UA) (Negative) Urine Ketones (Negative) Urine Occult Blood (Negative) Urine Nitrite (Negative) Urine Bilirubin (Negative) Urine Urobilinogen (0.2-1.0) Ur Leukocyte Esterase (Negative) Urine RBC (0-5) /hpf Urine WBC (0-5) /hpf Ur Epithelial Cells (0-5) /hpf Urine Bacteria (FEW) /hpf Urine Mucus (FEW) /hpf [place] Results Last 24 Hours: Microbiology 05/15/19 09:11 Stool Occult Blood (MANUELITO) - Final Stool / Feces Med Orders - Current: Current Medications Albuterol (Proventil Neb Soln) 2.5 mg NEB ONETIME ONE Stop: 05/16/19 08:01 Albuterol/Ipratropium (Duoneb 3.0-0.5 Mg/3 Ml) 3 ml NEB Q4HRRT PRN PRN Reason: Shortness of Breath Last Admin: 05/15/19 04:13 Dose: 3 ml Fluoxetine HCl (Prozac) 20 mg PO DAILY [facility] Last Admin: 05/15/19 09:35 Dose: 20 mg Furosemide (Lasix) 40 mg IVPUSH DAILY [facility] Last Admin: 05/15/19 09:33 Dose: 40 mg Furosemide (Lasix) 20 mg IVPUSH Q24H [facility] Last Admin: 05/15/19 16:32 Dose: Not Given Hydralazine HCl (Apresoline) 25 mg PO Q8H [facility] Last Admin: 05/15/19 12:52 Dose: 25 mg Thiamine HCl 1,000 mg/ Folic Acid 1 mg/ Magnesium Sulfate 4 gm/ Dextrose/Sodium Chloride 1,018.2 mls @ 125 mls/hr IV Q24H [facility] Stop: 05/16/19 18:09 Last Admin: 05/15/19 10:20 Dose: 125 mls/hr Lorazepam (Ativan) 1 mg PO Q6H PRN PRN Reason: Withdrawal Symptoms Metoprolol Succinate (Toprol Xl) 100 mg PO DAILY [facility] Last Admin: 05/15/19 09:53 Dose: 100 mg Mirtazapine (Remeron) 30 mg PO BEDTIME [facility] Last Admin: 05/14/19 21:22 Dose: 30 mg Miscellaneous Information (Remove Patch) 1 ea TRDERM Q24H [facility] Nicotine (Habitrol) 21 mg TRDERM DAILY [facility] Last Admin: 05/15/19 09:33 Dose: 21 mg Pantoprazole Sodium (Protonix Iv) 40 mg IVPUSH Q12H [facility] Last Admin: 05/15/19 07:25 Dose: 40 mg Sodium Chloride (Saline Flush) 10 ml FLUSH ASDIRECTED PRN PRN Reason: Keep Vein Open Last Admin: 05/14/19 16:30 Dose: 10 ml Discontinued Medications Chlordiazepoxide HCl (Librium) 50 mg PO ONETIME ONE Stop: 05/14/19 20:34 Last Admin: 05/14/19 21:22 Dose: 50 mg Chlordiazepoxide HCl (Librium) 50 mg PO ONETIME ONE Stop: 05/15/19 03:31 Last Admin: 05/15/19 03:55 Dose: 50 mg Famotidine (Pepcid) 20 mg IVPUSH ONETIME ONE Stop: 05/14/19 16:16 Last Admin: 05/14/19 16:23 Dose: 20 mg Folic Acid (Folic Acid) 1 mg PO DAILY [facility] Last Admin: 05/15/19 09:35 Dose: 1 mg Furosemide (Lasix) 80 mg PO ONETIME ONE Stop: 05/15/19 16:34 Lactated Ringer's (Ringers, Lactated) 1,000 mls @ 150 mls/hr IV ASDIRECTED [facility] Last Infusion: 05/15/19 02:01 Dose: 100 mls/hr Potassium Chloride 10 meq/ (Premix) 100 mls @ 100 mls/hr IV Q1H [facility] Stop: 05/15/19 00:59 Last Admin: 05/15/19 01:23 Dose: 100 mls/hr Influenza Virus Vaccine (Pharmacy To Dose - Influenza Vaccine) 1 each IM ONETIME ONE Stop: 05/14/19 14:13 Last Admin: 05/14/19 14:28 Dose: 1 each Influenza Virus Vaccine (Fluzone High-Dose 2019-20 Syringe) 180 mcg IM .ONCE ONE Stop: 05/14/19 14:16 Last Admin: 05/14/19 14:28 Dose: 180 mcg Lorazepam (Ativan) 1 mg IVPUSH ONETIME ONE Stop: 05/14/19 20:20 Last Admin: 05/14/19 20:26 Dose: 1 mg Lorazepam (Ativan) 0 mg PO Q1H PRN; Protocol PRN Reason: Withdrawal Symptoms Lorazepam (Ativan) 0 mg IVPUSH Q1H PRN; Protocol PRN Reason: Withdrawal Symptoms Miscellaneous Information (Remove Patch) 1 ea TRDERM ONETIME ONE Stop: 05/15/19 09:01 Last Admin: 05/15/19 09:35 Dose: 1 ea Nicotine (Habitrol) 21 mg TRDERM ONETIME ONE Stop: 05/15/19 00:20 Last Admin: 05/15/19 00:46 Dose: 21 mg Pantoprazole Sodium (Protonix Iv) 40 mg IVPUSH ONETIME ONE Stop: 05/14/19 16:16 Last Admin: 05/14/19 16:27 Dose: 40 mg Thiamine HCl (Vitamin B-1) 100 mg IVPUSH Q8H [facility] Last Admin: 05/15/19 08:42 Dose: Not Given - My Orders Last 24 Hours: My Active Orders 05/15/19 03:55 SMEARS TO PATH (SLIDES ONLY) [REF] Routine WBC DIFFERENTIAL, MANUAL [REF] Routine 05/15/19 10:00 Thiamine [Vitamin B-1] 1,000 mg Folic Acid 1 mg Magnesium Sulfate [Magnesium Sulfate 50%] 4 gm Dextrose 5%-0.9% NaCl [Dextrose 5%-Normal Saline] 1,000 ml IV Q24H 05/15/19 11:03 PT Evaluation and Treatment [CONS] Routine 05/15/19 11:04 OT Evaluation and Treatment [CONS] Routine 05/15/19 15:12 LORazepam [Ativan] 1 mg PO Q6H PRN 05/15/19 15:45 CREATININE,URINE RAND [URCHEM] Routine 05/15/19 Breakfast Clear Liquid Diet [DIET] - Plan Plan:: Assessment * 68-year-old male with history of alcohol abuse presents with shortness of breath and black stools. * GI bleed * Initial hemoglobin 11.6, repeat 4 hours apart: 10.7 and 10.6 * On Eliquis and aspirin for history of atrial fibrillation cardioverted to sinus rhythm 3-4 months ago * Hemodynamically stable * Alcohol withdrawal * Up to 750 mL of vodka and 4 glasses of wine daily * No history of alcohol withdrawal seizurE * COPD * Patient complaints of shortness of breath without wheeze, rales or rhonchi * Chronic medical history of hypertension, lower extremity edema without mention of congestive heart failure, depression, tobaccoism Plan * Admit to ICU * Consult surgery-done in the emergency room * Monitor H&H * CIWA protocol with Ativan * Librium 50 mg now and in 6 hours. May need to hold after that for upper endoscopy * CBC, CMP, mag in the morning * Restart appropriate home meds * Nicotine replacement - spent 4 minutes counseling on smoking cessation. * CODE STATUS full code * VTE prophylaxis with SCDs. Chemotherapy prophylaxis contraindicated. * Type and screen done in the emergency room.
[2019-05-15] MEDS: Mirtazapine 30 MG Tab PO SCH (20:21)
[2019-05-16] MEDS: Albuterol/Ipratropium 3.0-0.5 MG/3 ML Neb Soln NEB PRN (00:17)
[2019-05-16] MEDS: hydrALAZINE 25 MG Tab PO SCH ×3 (04:00→21:51)
[2019-05-16] MEDS: Pantoprazole 40 MG Vial IVPUSH SCH ×2 (06:32→19:00)
[2019-05-16] MEDS ORDERED: Propofol 200 MG/20 ML SDV ONE (07:10)
[2019-05-16] MEDS ORDERED: Midazolam 1 MG/ML 2 ML SDV ONE (07:11)
[2019-05-16] MEDS ORDERED: Albuterol 0.083% 2.5 MG/3 ML Neb Soln NEB ONE (08:00)
--- NOTE | 2019-05-16 08:46 | PCM48HPAN ---
Post Anesthesia Note - EVALUATION WITHIN 48HRS OF ANESTHETIC Vital Signs in Normal Range: Yes Patient Participated in Evaluation: Yes Respiratory Function Stable: Yes Airway Patent: Yes Cardiovascular Function Stable: Yes Hydration Status Stable: Yes Pain Control Satisfactory: Yes Nausea and Vomiting Control Satisfactory: Yes Mental Status Recovered: Yes Vital Signs: Last Vital Signs Temp 36.1 C 05/16/19 08:00 Pulse 91 05/16/19 08:00 Resp 18 05/16/19 08:00 BP 142/98 H 05/16/19 08:00 Pulse Ox 97 05/16/19 08:00 Orthostatic Blood Pressure [ 137/94 Standing] Orthostatic Blood Pressure [ 136/90 Sitting] Orthostatic Blood Pressure [ 137/83 Supine]
[2019-05-16] MEDS: Nicotine 21 MG/24 Hr Patch TRDERM SCH (09:44)
[2019-05-16] MEDS: Metoprolol Succinate 50 MG Tab.ER PO SCH (09:46)
[2019-05-16] MEDS: FLUoxetine 20 MG Cap PO SCH (09:46)
[2019-05-16] MEDS: MAGNESIUM SULFATE IV SCH (09:47)
[2019-05-16] MEDS: [UNRECOGNIZED DRUG - OTHER] IV SCH (09:47)
[2019-05-16] MEDS: FOLIC ACID IV SCH (09:47)
[2019-05-16] MEDS: THIAMINE IV SCH (09:47)
--- NOTE | 2019-05-16 09:56 | OR ---
DATE OF OPERATION: 05/16/2019 SURGEON: Jacob Croft MD PREOPERATIVE DIAGNOSIS: Upper gastrointestinal bleed, on Eliquis. POSTOPERATIVE DIAGNOSIS: 1. Sliding hiatal hernia. 2. No evidence of an upper gastrointestinal bleed. OPERATION PERFORMED: EGD with biopsies. ANESTHESIA: MAC. COMPLICATIONS: None. FINDINGS: He has a small sliding hiatal hernia. I found no evidence of upper GI bleeding. No ulcers were identified. He has some salmon-pink mucosa at the GE junction, but this may simply be gastric mucosa projecting up into the esophagus, secondary to a sliding hiatal hernia. DISPOSITION: Stable at the end of the procedure. PATHOLOGY: 1. Body of the stomach testing for H. pylori. 2. Fundus of the stomach testing for H. pylori. 3. GE junction testing for [place] esophagus. INDICATION: The patient is a 68-year-old male, heavy alcohol user, who presented with melena and abdominal pain. His stool tested positive for blood. He was on Eliquis on his arrival. We waited 48 hours since his dosing to consider scoping him. He was 2 weeks out from a screening colonoscopy, which demonstrated 7 polyps, all removed. He had no bright red blood per rectum. The patient was booked for an EGD. He was fully informed of the major risks, benefits, and alternatives. These include, but are not limited to the possibility of further surgery, bleeding, the risks of anesthesia, aspiration pneumonia, laryngeal spasm, and others. He gave informed consent of what was done. DESCRIPTION OF PROCEDURE: The patient was brought to the gastro suite and placed in the left lateral decubitus position. He was given MAC. A bite block was placed. I introduced the endoscope into the proximal esophagus, and I advanced the scope past the cricopharyngeus muscle into the stomach keeping the lumen in view at all times. I surveyed the stomach for ulcerations and evidence of bleeding and I found none. I passed the scope through the pylorus and advanced the scope to the 4th portion of the duodenum. I found no ulcerations. The mucosa appeared normal. I found no evidence of blood. I withdrew the scope into the stomach and biopsied the body and fundus checking for H. pylori. He does appear to have a sliding hiatal hernia, which was quite small. I biopsied the GE junction at 6 locations circumferentially to test for [place] esophagus. I evacuated the air from the stomach and then surveyed the mucosa of the esophagus in its entirety. I found no lesions. At the end of the procedure, the scope was withdrawn. He was awakened from anesthesia and moved to recovery in stable condition. PLAN: I will follow up on the pathology. He should hold off on restarting his Eliquis for 5 days. ESTIMATED BLOOD LOSS: MMODAL /[id number]
[2019-05-16] MEDS: Furosemide 80 MG Tab PO SCH ×2 (12:31→21:51)
[2019-05-16] MEDS ORDERED: Mirtazapine 30 MG Tab PO SCH (21:00)
[2019-05-16] MEDS: Topiramate 25 MG Tab PO SCH (21:50)
[2019-05-17] MEDS: Pantoprazole 40 MG Vial IVPUSH SCH (06:26)
[2019-05-17] MEDS: hydrALAZINE 25 MG Tab PO SCH ×2 (06:29→13:10)
[2019-05-17] MEDS: Metoprolol Succinate 50 MG Tab.ER PO SCH (08:12)
[2019-05-17] MEDS: Nicotine 21 MG/24 Hr Patch TRDERM SCH (08:12)
[2019-05-17] MEDS: Topiramate 25 MG Tab PO SCH (08:13)
[2019-05-17] MEDS: Furosemide 80 MG Tab PO SCH (08:13)
[2019-05-17] MEDS ORDERED: Magnesium Sulfate/Water 4 GM in Premix Bag 1 BAG IV ONE (11:11)
[2019-05-17] MEDS ORDERED: Potassium Chloride 20 MEQ Tab.ER PO SCH (11:15)
[2019-05-17] MEDS: Potassium Chloride 10 MEQ in Premix Bag 1 BAG IV SCH ×3 (11:41→14:26)
--- NOTE | 2019-05-17 11:59 | PCM.PN ---
- General Info Date of Service: 05/16/19 - Patient Data Vitals - Most Recent: Last Vital Signs Temp 36.7 C 05/17/19 07:41 Pulse 68 05/17/19 08:12 Resp 16 05/17/19 07:41 BP 137/93 H 05/17/19 08:12 Pulse Ox 93 L 05/17/19 07:41 Orthostatic Blood Pressure [ 137/94 Standing] Orthostatic Blood Pressure [ 136/90 Sitting] Orthostatic Blood Pressure [ 137/83 Supine] Weight - Most Recent: 84.277 kg I&O - Last 24 Hours: Intake & Output 05/16/19 05/17/19 05/17/19 22:59 06:59 14:59 Intake Total 1471 500 180 Output Total 2450 Balance 1471 -1950 180 Lab Results Last 24 Hours: Laboratory Results - last 24 hr 05/17/19 05/17/19 Range/Units 05:38 05:38 WBC 3.56 L (4.23-9.07) K/mm3 RBC 3.35 L (4.63-6.08) M/mm3 Hgb 10.5 L (13.7-17.5) gm/dl Hct 33.2 L (40.1-51.0) % MCV 99.1 H (79.0-92.2) fl MCH 31.3 (25.7-32.2) pg MCHC 31.6 L (32.2-35.5) g/dl RDW Std Deviation 57.3 H (35.1-43.9) fL Plt Count 105 L (163-337) K/mm3 MPV 11.5 (9.4-12.3) fl Neut % (Auto) 63.8 (34.0-67.9) % Lymph % (Auto) 20.8 L (21.8-53.1) % [place] % (Auto) 9.8 (5.3-12.2) % Eos % (Auto) 5.3 (0.8-7.0) Baso % (Auto) 0.0 L (0.1-1.2) % Neut # (Auto) 2.27 (1.78-5.38) K/mm3 Lymph # (Auto) 0.74 L (1.32-3.57) K/mm3 [place] # (Auto) 0.35 (0.30-0.82) K/mm3 Eos # (Auto) 0.19 (0.04-0.54) K/mm3 Baso # (Auto) 0.00 L (0.01-0.08) K/mm3 Sodium 145 (136-145) mEq/L Potassium 2.8 L (3.5-5.1) mEq/L Chloride 108 H (98-107) mEq/L Carbon Dioxide 28 (21-32) mEq/L Anion Gap 11.8 (5-15) BUN 11 (7-18) mg/dL Creatinine 0.8 (0.7-1.3) mg/dL Est Cr Clr Drug Dosing 90.83 mL/min Estimated GFR (MDRD) > 60 (>60) mL/min BUN/Creatinine Ratio 13.8 L (14-18) Glucose 93 (80-115) mg/dL Calcium 8.5 (8.5-10.1) mg/dL Magnesium 1.8 (1.8-2.4) mg/dl Total Bilirubin 0.5 (0.2-1.0) mg/dL AST 61 H (15-37) U/L ALT 83 H (16-63) U/L Alkaline Phosphatase 114 (46-116) U/L Total Protein 5.9 L (6.4-8.2) g/dl Albumin 2.2 L (3.4-5.0) g/dl Globulin 3.7 gm/dL Albumin/Globulin Ratio 0.6 L (1-2) Med Orders - Current: Current Medications Albuterol/Ipratropium (Duoneb 3.0-0.5 Mg/3 Ml) 3 ml NEB Q4HRRT PRN PRN Reason: Shortness of Breath Last Admin: 05/16/19 00:17 Dose: 3 ml Furosemide (Lasix) 80 mg PO BID [facility] Last Admin: 05/17/19 08:13 Dose: 80 mg Hydralazine HCl (Apresoline) 25 mg PO Q8H [facility] Last Admin: 05/17/19 06:29 Dose: 25 mg Magnesium Sulfate 4 gm/ Premix 50 mls @ 12.5 mls/hr IV ONETIME ONE Stop: 05/17/19 15:10 Last Admin: 05/17/19 11:40 Dose: 12.5 mls/hr Potassium Chloride 10 meq/ (Premix) 100 mls @ 100 mls/hr IV Q1H [facility] Stop: 05/17/19 14:14 Last Admin: 05/17/19 11:41 Dose: 100 mls/hr Lorazepam (Ativan) 1 mg PO Q6H PRN PRN Reason: Withdrawal Symptoms Metoprolol Succinate (Toprol Xl) 100 mg PO DAILY [facility] Last Admin: 05/17/19 08:12 Dose: 100 mg Mirtazapine (Remeron) 30 mg PO BEDTIME [facility] Last Admin: 05/16/19 21:50 Dose: 30 mg Miscellaneous Information (Remove Patch) 1 ea TRDERM Q24H [facility] Last Admin: 05/17/19 08:15 Dose: 1 ea Nicotine (Habitrol) 21 mg TRDERM DAILY [facility] Last Admin: 05/17/19 08:12 Dose: 21 mg Pantoprazole Sodium (Protonix Iv) 40 mg IVPUSH Q12H [facility] Last Admin: 05/17/19 06:26 Dose: 40 mg Potassium Chloride (Klor-Con M20) 40 meq PO BID [facility] Stop: 05/17/19 21:01 Last Admin: 05/17/19 11:41 Dose: 40 meq Sodium Chloride (Saline Flush) 10 ml FLUSH ASDIRECTED PRN PRN Reason: Keep Vein Open Last Admin: 05/14/19 16:30 Dose: 10 ml Topiramate (Topamax) 25 mg PO BID [facility] Last Admin: 05/17/19 08:13 Dose: 25 mg Discontinued Medications Albuterol (Proventil Neb Soln) 2.5 mg NEB ONETIME ONE Stop: 05/16/19 08:01 Last Admin: 05/16/19 07:03 Dose: 2.5 mg Chlordiazepoxide HCl (Librium) 50 mg PO ONETIME ONE Stop: 05/14/19 20:34 Last Admin: 05/14/19 21:22 Dose: 50 mg Chlordiazepoxide HCl (Librium) 50 mg PO ONETIME ONE Stop: 05/15/19 03:31 Last Admin: 05/15/19 03:55 Dose: 50 mg Famotidine (Pepcid) 20 mg IVPUSH ONETIME ONE Stop: 05/14/19 16:16 Last Admin: 05/14/19 16:23 Dose: 20 mg Fluoxetine HCl (Prozac) 20 mg PO DAILY [facility] Last Admin: 05/16/19 09:46 Dose: 20 mg Folic Acid (Folic Acid) 1 mg PO DAILY [facility] Last Admin: 05/15/19 09:35 Dose: 1 mg Furosemide (Lasix) 40 mg IVPUSH DAILY [facility] Last Admin: 05/15/19 09:33 Dose: 40 mg Furosemide (Lasix) 20 mg IVPUSH Q24H [facility] Last Admin: 05/15/19 16:32 Dose: Not Given Furosemide (Lasix) 80 mg PO ONETIME ONE Stop: 05/15/19 16:34 Last Admin: 05/15/19 16:41 Dose: 80 mg Lactated Ringer's (Ringers, Lactated) 1,000 mls @ 150 mls/hr IV ASDIRECTED [facility] Last Infusion: 05/15/19 02:01 Dose: 100 mls/hr Potassium Chloride 10 meq/ (Premix) 100 mls @ 100 mls/hr IV Q1H [facility] Stop: 05/15/19 00:59 Last Admin: 05/15/19 01:23 Dose: 100 mls/hr Thiamine HCl 1,000 mg/ Folic Acid 1 mg/ Magnesium Sulfate 4 gm/ Dextrose/Sodium Chloride 1,018.2 mls @ 125 mls/hr IV Q24H [facility] Stop: 05/16/19 18:09 Last Admin: 05/16/19 09:47 Dose: 125 mls/hr Influenza Virus Vaccine (Pharmacy To Dose - Influenza Vaccine) 1 each IM ONETIME ONE Stop: 05/14/19 14:13 Last Admin: 05/14/19 14:28 Dose: 1 each Influenza Virus Vaccine (Fluzone High-Dose 2019-20 Syringe) 180 mcg IM .ONCE ONE Stop: 05/14/19 14:16 Last Admin: 05/14/19 14:28 Dose: 180 mcg Lorazepam (Ativan) 1 mg IVPUSH ONETIME ONE Stop: 05/14/19 20:20 Last Admin: 05/14/19 20:26 Dose: 1 mg Lorazepam (Ativan) 0 mg PO Q1H PRN; Protocol PRN Reason: Withdrawal Symptoms Lorazepam (Ativan) 0 mg IVPUSH Q1H PRN; Protocol PRN Reason: Withdrawal Symptoms Midazolam HCl (Versed 1 Mg/Ml) Confirm Administered Dose 2 mg .ROUTE .STK-MED ONE Stop: 05/16/19 07:12 Mirtazapine (Remeron) 30 mg PO BEDTIME [facility] Last Admin: 05/15/19 20:21 Dose: 30 mg Miscellaneous Information (Remove Patch) 1 ea TRDERM ONETIME ONE Stop: 05/15/19 09:01 Last Admin: 05/15/19 09:35 Dose: 1 ea Nicotine (Habitrol) 21 mg TRDERM ONETIME ONE Stop: 05/15/19 00:20 Last Admin: 05/15/19 00:46 Dose: 21 mg Pantoprazole Sodium (Protonix Iv) 40 mg IVPUSH ONETIME ONE Stop: 05/14/19 16:16 Last Admin: 05/14/19 16:27 Dose: 40 mg Propofol (Diprivan 20 Ml) Confirm Administered Dose 400 mg .ROUTE .STK-MED ONE Stop: 05/16/19 07:11 Thiamine HCl (Vitamin B-1) 100 mg IVPUSH Q8H [facility] Last Admin: 05/15/19 08:42 Dose: Not Given - My Orders Last 24 Hours: My Active Orders 05/16/19 11:33 Patient Status [ADT] Routine 05/16/19 11:45 Furosemide [Lasix] 80 mg PO BID 05/16/19 Dinner Regular Diet [DIET] 05/17/19 11:11 Magnesium Sulfate/Water [Magnesium Sulfate in Water Premix] 4 gm Premix Bag 1 bag IV ONETIME 05/17/19 11:15 Potassium Chloride [KCl 10 MEQ in Water 100 ML] 10 meq Premix Bag 1 bag IV Q1H Potassium Chloride [Klor-Con M20] 40 meq PO BID 05/17/19 11:57 Ready for Discharge [RC] PER UNIT ROUTINE - Plan Plan:: Assessment * 68-year-old male with history of alcohol abuse presents with shortness of breath and black stools. * GI bleed * Initial hemoglobin 11.6, repeat 4 hours apart: 10.7 and 10.6 * On Eliquis and aspirin for history of atrial fibrillation cardioverted to sinus rhythm 3-4 months ago * Hemodynamically stable * Alcohol withdrawal * Up to 750 mL of vodka and 4 glasses of wine daily * No history of alcohol withdrawal seizurE * COPD * Patient complaints of shortness of breath without wheeze, rales or rhonchi * Chronic medical history of hypertension, lower extremity edema without mention of congestive heart failure, depression, tobaccoism Plan * Admit to ICU * Consult surgery-done in the emergency room * Monitor H&H * CIWA protocol with Ativan * Librium 50 mg now and in 6 hours. May need to hold after that for upper endoscopy * CBC, CMP, mag in the morning * Restart appropriate home meds * Nicotine replacement - spent 4 minutes counseling on smoking cessation. * CODE STATUS full code * VTE prophylaxis with SCDs. Chemotherapy prophylaxis contraindicated. * Type and screen done in the emergency room.
--- NOTE | 2019-05-17 12:00 | PCM.DCSUM1 ---
Discharge Summary - Discharge Data Discharge Disposition: Home, Self-Care 01 Condition: Good - Referral to Home Health Primary Care Physician: Carissa Medina MD - Patient Summary/Data Consults: Consultations 05/14/19 21:43 Consult to Physician [CONS] Routine 05/15/19 11:03 PT Evaluation and Treatment [CONS] Routine 05/15/19 11:04 OT Evaluation and Treatment [CONS] Routine 05/15/19 21:48 Consult for Substance Abuse [CONS] Routine 05/16/19 19:37 Consult to Spiritual Care [CONS] Routine 05/16/19 19:38 Consult for Substance Abuse [CONS] Routine - Patient Instructions Diet: Usual Diet as Tolerated Activity: As Tolerated - Discharge Plan Prescriptions/Med Rec: Furosemide [Lasix] 80 mg PO BID #30 tablet hydrALAZINE [Apresoline] 25 mg PO Q8H #30 tablet Metoprolol Succinate [Toprol XL 50mg] 100 mg PO DAILY #30 tab.er Mirtazapine [Remeron] 30 mg PO BEDTIME #30 tablet Nicotine [Habitrol] 21 mg TRDERM DAILY #30 patch Potassium Chloride [Klor-Con M20] 20 meq PO DAILY #30 tab.er Topiramate [Topamax] 25 mg PO BID #60 tablet Home Medications: Home Meds Aspirin [Ecotrin EC] 81 mg PO DAILY 07/18/17 [History] Mirtazapine [Remeron] 30 mg PO BEDTIME 07/18/17 [History] Multivitamin with Minerals [Multiple Vitamin] 1 tab PO DAILY 07/18/17 [History] Tadalafil [Cialis] 5 mg PO DAILY 07/18/17 [History] amLODIPine [Norvasc] 10 mg PO BEDTIME 07/18/17 [History] Apixaban [Eliquis] 5 mg PO BID 12/14/18 [History] Folic Acid 1 mg PO DAILY 12/14/18 [History] Bisac/NaCl/NaHCo3/KCl/PEG 3350 [Peg-Prep Kit] 1 each PO ASDIRECTED 05/14/19 [ History] Latanoprost/Pf [Latanoprost 0.005% Eye Drop] 1 drop OP DAILY 05/14/19 [History] Magnesium Chloride [Slow-Mag] 70 mg PO DAILY 05/14/19 [History] Furosemide [Lasix] 80 mg PO BID #30 tablet 05/17/19 [Rx] Metoprolol Succinate [Toprol XL 50mg] 100 mg PO DAILY #30 tab.er 05/17/19 [Rx] Mirtazapine [Remeron] 30 mg PO BEDTIME #30 tablet 05/17/19 [Rx] Nicotine [Habitrol] 21 mg TRDERM DAILY #30 patch 05/17/19 [Rx] Potassium Chloride [Klor-Con M20] 20 meq PO DAILY #30 tab.er 05/17/19 [Rx] Topiramate [Topamax] 25 mg PO BID #60 tablet 05/17/19 [Rx] hydrALAZINE [Apresoline] 25 mg PO Q8H #30 tablet 05/17/19 [Rx] Patient Handouts: Steps to Quit Smoking Forms: ED Department Discharge Referrals: Carissa Medina MD [Primary Care Provider] - (5-7 days) - Patient Data Vitals - Most Recent: Last Vital Signs Temp 36.7 C 05/17/19 07:41 Pulse 68 05/17/19 08:12 Resp 16 05/17/19 07:41 BP 137/93 H 05/17/19 08:12 Pulse Ox 93 L 05/17/19 07:41 Orthostatic Blood Pressure [ 137/94 Standing] Orthostatic Blood Pressure [ 136/90 Sitting] Orthostatic Blood Pressure [ 137/83 Supine] Weight - Most Recent: 84.277 kg I&O - Last 24 hours: Intake & Output 05/16/19 05/17/19 05/17/19 22:59 06:59 14:59 Intake Total 1471 500 180 Output Total 2450 Balance 1471 -1950 180 Lab Results - Last 24 hrs: Laboratory Results - last 24 hr 05/17/19 05/17/19 Range/Units 05:38 05:38 WBC 3.56 L (4.23-9.07) K/mm3 RBC 3.35 L (4.63-6.08) M/mm3 Hgb 10.5 L (13.7-17.5) gm/dl Hct 33.2 L (40.1-51.0) % MCV 99.1 H (79.0-92.2) fl MCH 31.3 (25.7-32.2) pg MCHC 31.6 L (32.2-35.5) g/dl RDW Std Deviation 57.3 H (35.1-43.9) fL Plt Count 105 L (163-337) K/mm3 MPV 11.5 (9.4-12.3) fl Neut % (Auto) 63.8 (34.0-67.9) % Lymph % (Auto) 20.8 L (21.8-53.1) % [place] % (Auto) 9.8 (5.3-12.2) % Eos % (Auto) 5.3 (0.8-7.0) Baso % (Auto) 0.0 L (0.1-1.2) % Neut # (Auto) 2.27 (1.78-5.38) K/mm3 Lymph # (Auto) 0.74 L (1.32-3.57) K/mm3 [place] # (Auto) 0.35 (0.30-0.82) K/mm3 Eos # (Auto) 0.19 (0.04-0.54) K/mm3 Baso # (Auto) 0.00 L (0.01-0.08) K/mm3 Sodium 145 (136-145) mEq/L Potassium 2.8 L (3.5-5.1) mEq/L Chloride 108 H (98-107) mEq/L Carbon Dioxide 28 (21-32) mEq/L Anion Gap 11.8 (5-15) BUN 11 (7-18) mg/dL Creatinine 0.8 (0.7-1.3) mg/dL Est Cr Clr Drug Dosing 90.83 mL/min Estimated GFR (MDRD) > 60 (>60) mL/min BUN/Creatinine Ratio 13.8 L (14-18) Glucose 93 (80-115) mg/dL Calcium 8.5 (8.5-10.1) mg/dL Magnesium 1.8 (1.8-2.4) mg/dl Total Bilirubin 0.5 (0.2-1.0) mg/dL AST 61 H (15-37) U/L ALT 83 H (16-63) U/L Alkaline Phosphatase 114 (46-116) U/L Total Protein 5.9 L (6.4-8.2) g/dl Albumin 2.2 L (3.4-5.0) g/dl Globulin 3.7 gm/dL Albumin/Globulin Ratio 0.6 L (1-2) Med Orders - Current: Current Medications Albuterol/Ipratropium (Duoneb 3.0-0.5 Mg/3 Ml) 3 ml NEB Q4HRRT PRN PRN Reason: Shortness of Breath Last Admin: 05/16/19 00:17 Dose: 3 ml Furosemide (Lasix) 80 mg PO BID [facility] Last Admin: 05/17/19 08:13 Dose: 80 mg Hydralazine HCl (Apresoline) 25 mg PO Q8H [facility] Last Admin: 05/17/19 06:29 Dose: 25 mg Magnesium Sulfate 4 gm/ Premix 50 mls @ 12.5 mls/hr IV ONETIME ONE Stop: 05/17/19 15:10 Last Admin: 05/17/19 11:40 Dose: 12.5 mls/hr Potassium Chloride 10 meq/ (Premix) 100 mls @ 100 mls/hr IV Q1H DENY Stop: 05/17/19 14:14 Last Admin: 05/17/19 11:41 Dose: 100 mls/hr Lorazepam (Ativan) 1 mg PO Q6H PRN PRN Reason: Withdrawal Symptoms Metoprolol Succinate (Toprol Xl) 100 mg PO DAILY [facility] Last Admin: 05/17/19 08:12 Dose: 100 mg Mirtazapine (Remeron) 30 mg PO BEDTIME [facility] Last Admin: 05/16/19 21:50 Dose: 30 mg Miscellaneous Information (Remove Patch) 1 ea TRDERM Q24H [facility] Last Admin: 05/17/19 08:15 Dose: 1 ea Nicotine (Habitrol) 21 mg TRDERM DAILY [facility] Last Admin: 05/17/19 08:12 Dose: 21 mg Pantoprazole Sodium (Protonix Iv) 40 mg IVPUSH Q12H [facility] Last Admin: 05/17/19 06:26 Dose: 40 mg Potassium Chloride (Klor-Con M20) 40 meq PO BID [facility] Stop: 05/17/19 21:01 Last Admin: 05/17/19 11:41 Dose: 40 meq Sodium Chloride (Saline Flush) 10 ml FLUSH ASDIRECTED PRN PRN Reason: Keep Vein Open Last Admin: 05/14/19 16:30 Dose: 10 ml Topiramate (Topamax) 25 mg PO BID [facility] Last Admin: 05/17/19 08:13 Dose: 25 mg Discontinued Medications Albuterol (Proventil Neb Soln) 2.5 mg NEB ONETIME ONE Stop: 05/16/19 08:01 Last Admin: 05/16/19 07:03 Dose: 2.5 mg Chlordiazepoxide HCl (Librium) 50 mg PO ONETIME ONE Stop: 05/14/19 20:34 Last Admin: 05/14/19 21:22 Dose: 50 mg Chlordiazepoxide HCl (Librium) 50 mg PO ONETIME ONE Stop: 05/15/19 03:31 Last Admin: 05/15/19 03:55 Dose: 50 mg Famotidine (Pepcid) 20 mg IVPUSH ONETIME ONE Stop: 05/14/19 16:16 Last Admin: 05/14/19 16:23 Dose: 20 mg Fluoxetine HCl (Prozac) 20 mg PO DAILY [facility] Last Admin: 05/16/19 09:46 Dose: 20 mg Folic Acid (Folic Acid) 1 mg PO DAILY [facility] Last Admin: 05/15/19 09:35 Dose: 1 mg Furosemide (Lasix) 40 mg IVPUSH DAILY [facility] Last Admin: 05/15/19 09:33 Dose: 40 mg Furosemide (Lasix) 20 mg IVPUSH Q24H [facility] Last Admin: 05/15/19 16:32 Dose: Not Given Furosemide (Lasix) 80 mg PO ONETIME ONE Stop: 05/15/19 16:34 Last Admin: 05/15/19 16:41 Dose: 80 mg Lactated Ringer's (Ringers, Lactated) 1,000 mls @ 150 mls/hr IV ASDIRECTED [facility] Last Infusion: 05/15/19 02:01 Dose: 100 mls/hr Potassium Chloride 10 meq/ (Premix) 100 mls @ 100 mls/hr IV Q1H [facility] Stop: 05/15/19 00:59 Last Admin: 05/15/19 01:23 Dose: 100 mls/hr Thiamine HCl 1,000 mg/ Folic Acid 1 mg/ Magnesium Sulfate 4 gm/ Dextrose/Sodium Chloride 1,018.2 mls @ 125 mls/hr IV Q24H [facility] Stop: 05/16/19 18:09 Last Admin: 05/16/19 09:47 Dose: 125 mls/hr Influenza Virus Vaccine (Pharmacy To Dose - Influenza Vaccine) 1 each IM ONETIME ONE Stop: 05/14/19 14:13 Last Admin: 05/14/19 14:28 Dose: 1 each Influenza Virus Vaccine (Fluzone High-Dose 2018- Syringe) 180 mcg IM .ONCE ONE Stop: 05/14/19 14:16 Last Admin: 05/14/19 14:28 Dose: 180 mcg Lorazepam (Ativan) 1 mg IVPUSH ONETIME ONE Stop: 05/14/19 20:20 Last Admin: 05/14/19 20:26 Dose: 1 mg Lorazepam (Ativan) 0 mg PO Q1H PRN; Protocol PRN Reason: Withdrawal Symptoms Lorazepam (Ativan) 0 mg IVPUSH Q1H PRN; Protocol PRN Reason: Withdrawal Symptoms Midazolam HCl (Versed 1 Mg/Ml) Confirm Administered Dose 2 mg .ROUTE .STK-MED ONE Stop: 05/16/19 07:12 Mirtazapine (Remeron) 30 mg PO BEDTIME [facility] Last Admin: 05/15/19 20:21 Dose: 30 mg Miscellaneous Information (Remove Patch) 1 ea TRDERM ONETIME ONE Stop: 05/15/19 09:01 Last Admin: 05/15/19 09:35 Dose: 1 ea Nicotine (Habitrol) 21 mg TRDERM ONETIME ONE Stop: 05/15/19 00:20 Last Admin: 05/15/19 00:46 Dose: 21 mg Pantoprazole Sodium (Protonix Iv) 40 mg IVPUSH ONETIME ONE Stop: 05/14/19 16:16 Last Admin: 05/14/19 16:27 Dose: 40 mg Propofol (Diprivan 20 Ml) Confirm Administered Dose 400 mg .ROUTE .STK-MED ONE Stop: 05/16/19 07:11 Thiamine HCl (Vitamin B-1) 100 mg IVPUSH Q8H DENY Last Admin: 05/15/19 08:42 Dose: Not Given
--- NOTE | 2019-05-20 08:51 | CONS ---
CONSULTING PHYSICIAN: [place] MD DATE OF CONSULTATION: 05/16/2019 This is a 60-minute inpatient clinical event. Site where the services are provided is [facility] in [place], [place]. Site where the services are provided from our offices in [facility]. Length of service for this 60-minute inpatient telemedicine event is 60 minutes. IDENTIFICATION: The patient is a 68-year-old male, who is admitted to the inpatient MICU at [facility] on 05/14/2019. He was seen for psychiatric evaluation per the request of staff attending, Dr. Barcenas and Dr. Wheeler and their treatment teams. CHIEF COMPLAINT: "I came in basically I was having a hard time breathing." HISTORY OF PRESENT ILLNESS: The patient states he begin having shortness of breath this past weekend and it worsened through Monday. He decided to have his brother bring him into the emergency room and once evaluated in the emergency room, he was admitted on 05/14/2019 to the inpatient MICU at [facility] for complications of atrial fibrillation, possible GI bleed and shortness of breath. Complicating clinical picture for the patient is that he has been drinking heavily per his report. He states "basically I think what it is, is that I was drinking too much." The patient relates he has been drinking "1 pint of vodka a day and 3 to 4 glasses of wine." He states he is drinking because he is depressed "a lot of times." He also has some anxiety and he states what is particularly troublesome to him at this point in time is, he is experiencing quite a few mood swings. He states "I have been diagnosed with bipolar since 2004." The patient is denying being suicidal or homicidal. He denies any psychotic, delusional, or paranoid symptoms. He denies any illicit substance use complicating his clinical picture, and he states that even if he got drinking under control, he probably will be less depressed and less estrella, but it would still be problematic for him as well as the anxiety. The patient states that he has been taking Remeron in the past, and he feels that he has done well with this medication when he is taking it. He has been taking Prozac recently it sounds like, and he states also "I got some Prozac since I have been here," but he really likes the Remeron. He cannot remember being on any mood stabilizers, but he does endorse problems with ayla. He states he has had a few manic episodes, "but mostly depression." He is open to getting a mood stabilizer when it is explained to him that this would perhaps help him feel better and not have such tremendous mood swings and also prevent him from having any breakthrough seizures, although he is denying any history of seizures. He states he gets his medications from his primary outpatient MD, Dr. Euceda, who is the family doc in the area. MEDICATIONS: At the time of presentation: 1. Prozac. 2. The staff is reporting the patient is taking Cialis, although he is stating he is not taking this at this point in time. 3. Acetylsalicylic acid. 4. He also states that prior to admission he was prescribed Eliquis by Dr. Euceda for his atrial fibrillation. ALLERGIES: No known drug allergies. PAST MEDICAL HISTORY: 1. Hypertension. 2. Atrial fibrillation. 3. GI bleed. 4. Status post brain aneurysms with stent placement in head. 5. Status post cerebral angiograms x7 in the past. REVIEW OF SYSTEMS: Aside from cardiovascular, GI, Pulmonary, and neuro, all other major organ systems are negative at this point in time for acute difficulties or complications. FAMILY PSYCHIATRIC AND CD HISTORY: The patient reports that his mother had a history of alcoholism, brother had opioid dependence and PTSD, and another brother had a history of alcoholism as well. PAST PSYCHIATRIC AND CD HISTORY: Patient denies any previous psychiatric hospitalization. He reports 6 chemical dependency treatments, all in the calendar year of 2003. He states his longest sobriety has been for 2 years, but that was a while back. He has been to AA in the past and that has helped and that is where he would like to be going forward. He had a DWI back in 2015, it has been adjudicated. He has 2 previous detox admissions. Denies any previous suicide attempts, self-injurious behaviors, or eating disorder history. Past diagnosis is bipolar affective disease since 2004. Past psychiatric medication history includes Prozac and Remeron. Dr. Carissa Euceda is the patient's outpatient care provider. SOCIAL HISTORY: The patient was born in [place], [place], raised in [place] and then also [place], [place]. He is the second of 4 siblings and 2 brothers and 1 sister. The patient's parents were throughout his childhood and adolescence. Father was an auto [employer] company marker. Mother was a homemaker. The patient's highest level of education is 2 years of college and then engineering certificate from a trade school. He worked for [employer] for a number years and then started working out at [employer], which eventually became [employer], and he retired about 8 years ago and moved back to [place], [place] to be closer to his family. He is x1 for 35 years, but is for 15 years now. He has 2 children from the marriage, and he is reporting that they live down in [place], [place]. He lives by himself in [place], [place] close to his brother. He denies any prior service or any current legal difficulties. He is a Quaker in terms of his kia formation. He enjoys gardening and cooking in his spare time. MENTAL STATUS EXAM: The patient is a 68-year-old white male, in no apparent distress. Speech is of regular rate and rhythm. The patient is cognitively oriented x3. Psychomotor activity is within normal limits. There is no abnormal motor movements or tics observed. Gait and station are not observed as the patient is seated for the purposes of the telemedicine consult. Mood is depressed, anxious, and irritable. Affect is cooperative overall for the purposes of the inpatient consult. There is no behavioral or stated evidence of acute suicidal or homicidal ideation or acute psychotic, delusional, or paranoid symptoms. Thought processes are organized overall and there are no acute manic symptoms, loose associations evident. Judgment and insight appear unimpaired at this point in time. Motivation for help appears good. VITALS: 142/98, 91, 18, 97 degrees. IMPRESSION: [place] I: 1. Alcohol dependence, F10.20. 2. Bipolar affective disease, mixed type, F31.60. 3. Anxiety disorder, not otherwise specified, F41.9. 4. Reported history of bipolar affective disease, manic type. [place] II: None. [place] III: 1. Hypertension. 2. Atrial fibrillation. 3. GI bleed history. 4. History of shortness of breath, currently being worked up. 5. Status post brain aneurysm with stent placed in head. 6. Status post cerebral angiogram x7 in the past. [place] IV: Severe. [place] V: 55 to 60. PLAN: 1. Sobriety. 2. AA rep to visit the patient while on unit. 3. Pastoral guidance. 4. Discontinue Prozac. 5. Begin trial of Remeron 30 mg at bedtime to help with symptoms of depression as well as sleep initiation, maintenance, and anxiety reduction. 6. Begin trial of Topamax 25 mg b.i.d. for anxiety reduction and mood stability. 7. Folic acid supplementation. 8. Thiamine supplementation. 9. Ativan per [facility] protocol. 10.Recommend that when patient is medically stabilized he will be discharged back to the community with outpatient resources such as AA and possible outpatient chemical dependency treatment in place for the patient to help maintain sobriety. 11.I did explain to the patient that if he is unable to maintain sobriety on his own and he is back in the hospital under similar circumstances, then treatment team will strongly consider possibly having the patient placed in inpatient CD treatment for his own safety, and the patient acknowledges understanding these facts. There are no further questions by the end of the interview session. 12.We would recommend the patient follow up with Outpatient Psychiatry to assess his overall function and efficacy of his newly initiated and adjusted psychiatric medication regimen, again when he is medically stabilized and discharged back to the community. 13.We will continue follow up with the patient on an as-needed basis while he remains on the inpatient MICU at [facility]. 14.We will follow up with the patient sooner if any complications in the interim. 15.Crisis plan is in place. RENATA /[id number]
== END 2019-05-17 16:03 | disposition home or self-care (01) | DRG 378 ==
LOC: JD.ED 13:49 → JD.ICU 16:11 → JD.MS 05-16 20:08
PROVIDERS: ADMIT Internal Medicine; ATTEND Internal Medicine
PROC: HZ2ZZZZ Detoxification Services for Substance Abuse Treatment (ICD-10-PCS; principal; 2019-05-14)
PROC: 3E02340 Introduction of Influenza Vaccine into Muscle, Percutaneous Approach (ICD-10-PCS; 2019-05-14)
PROC: 0DB48ZX Excision of Esophagogastric Junction, Via Natural or Artificial Opening Endoscopic, Diagnostic (ICD-10-PCS; 2019-05-16)
PROC: 0DB68ZX Excision of Stomach, Via Natural or Artificial Opening Endoscopic, Diagnostic (ICD-10-PCS; 2019-05-16)
DX: K92.2 Gastrointestinal hemorrhage, unspecified (principal); F10.920 Alcohol use, unspecified with intoxication, uncomplicated; R06.02 Shortness of breath; F10.230 Alcohol dependence with withdrawal, uncomplicated; I48.91 Unspecified atrial fibrillation; J44.9 Chronic obstructive pulmonary disease, unspecified; F17.220 Nicotine dependence, chewing tobacco, uncomplicated; H54.7 Unspecified visual loss; H40.9 Unspecified glaucoma; E78.00 Pure hypercholesterolemia, unspecified; I10 Essential (primary) hypertension; F32.9 Major depressive disorder, single episode, unspecified; K44.9 Diaphragmatic hernia without obstruction or gangrene; F17.210 Nicotine dependence, cigarettes, uncomplicated; F41.9 Anxiety disorder, unspecified; Z23 Encounter for immunization; Z79.82 Long term (current) use of aspirin; Z79.01 Long term (current) use of anticoagulants; Z79.899 Other long term (current) drug therapy; Z86.718 Personal history of other venous thrombosis and embolism
CPT/HCPCS: 36415; 80053; 85025; 85610; 85730; 86850; 86900; 86901; 90662; 93005; 99285; G0008; G0480; 00731; 71045; 71045-26; 81001; 82272; 82570; 83735; 85007; 85014; 85018; 85027; 85045; 88305; 93010; 94640; 96361; 96374; 96375; 97110-GO; 97161-GP; 97166-GO; 97530-GO; 99284; A9270-GY; C9113; J1940; J2060; J2250; J2704; J3411; J3475; J3480; J3490; J7042; J7120; J7620-GY

== ENCOUNTER 2021-09-15 16:12 | Emergency (ER) | payer MEDICARE, OTHER ==
[2021-09-15] MEDS ORDERED: Sodium Chloride 0.9% 1,000 ML IV STA (16:35)
[2021-09-15] MEDS ORDERED: Sodium Chloride 0.9% 10 ML Syringe FLUSH PRN (16:35)
[2021-09-15] MEDS ORDERED: Sodium Chloride 0.9% 500 ML IV STA (19:06)
== END 2021-09-15 19:49 | disposition home or self-care (01) ==
LOC: JD.ED 16:12
DX: N19 Unspecified kidney failure (principal); I48.91 Unspecified atrial fibrillation; E78.00 Pure hypercholesterolemia, unspecified; I10 Essential (primary) hypertension; J44.9 Chronic obstructive pulmonary disease, unspecified; Z79.82 Long term (current) use of aspirin; Z79.01 Long term (current) use of anticoagulants; Z79.899 Other long term (current) drug therapy
CPT/HCPCS: 36415; 80053; 81001; 82570; 83735; 83880; 84156; 85025; 99283; J7030; 99285